=== PATIENT | female | born 1955 | race Caucasian/White ===

== ENCOUNTER → 2018-03-11 | Outpatient (CLI) | payer OTHER, MEDICAID ==
[~2018-03-11] MED LIST: ALBU18HF INH; ALBU8.5H8 INH; CHOL200024 PO; COLE625T12 PO; DIPH1TAB PO; INSU100C SQ-INSULIN; INSU100V8 SQ; LISI2.5T PO; LOPE2CAP PO; OXYB5TAB33 PO; ROPI0.254 PO; TAMS-11 PO; THC PO; [UNRECOGNIZED DRUG - OTHER] SL
[2018-03-11 10:42] LABS: ALANINE AMINOTRANSFERASE 23 U/L (12-78); ALBUMIN 3.5 g/dL (3.4-5.0); ANION GAP 8 mmol/L (5-15); CALCIUM 9.3 mg/dL (8.5-10.1); CHLORIDE 110 mmol/L (98-107); CREATININE 1.42 mg/dL (0.55-1.02)
[2018-03-11 10:44] LABS: ALKALINE PHOSPHATASE 95 U/L (45-117); BILIRUBIN,TOTAL 0.5 mg/dL (0.2-1.0); TOTAL PROTEIN 7.6 g/dL (6.4-8.2)
== END | disposition home or self-care (01) ==
LOC: STAR 09:13
PROVIDERS: ATTEND Urology
DX: Z01.818 Encounter for other preprocedural examination (principal); N20.1 Calculus of ureter; R82.992 Hyperoxaluria
CPT/HCPCS: 36415; 80053

== ENCOUNTER 2018-05-06 11:30 | Day surgery (SDC) | payer OTHER, MEDICAID ==
[~2018-05-06] VITALS: Ht 167.6 cm; Wt 108.2 kg
[2018-05-06 12:15] VITALS: BP 159/86
[2018-05-06] MEDS ORDERED: LACTATED RINGERS 1,000 ML IV SCH (12:20)
[2018-05-06] MEDS ORDERED: SULF-169 PO (12:24)
[2018-05-06 13:27] LABS: CULTURE INDICATED? YES; MICROSCOPIC INDICATED
[2018-05-06] MEDS ORDERED: FENTANYL PF 100 MCG/2ML ONE (14:37)
[2018-05-06] MEDS ORDERED: ONDANSETRON 2MG/ML, 2ML ONE (15:54)
[2018-05-06] MEDS ORDERED: CEFAZOLIN 1,000 MG ONE (15:54)
[2018-05-06] MEDS ORDERED: DEXAMETHASONE 4 MG/ML, 1ML ONE (15:54)
[2018-05-06] MEDS ORDERED: PROPOFOL 10 MG/ML, 50ML ONE (15:54)
[2018-05-06] MEDS ORDERED: PROPOFOL 10 MG/ML, 20ML ONE (15:54)
[2018-05-06] MEDS ORDERED: CIPROFLOXACIN/PMX 400MG/200ML 200 ML IVPB ONE (15:54)
[2018-05-06] MEDS ORDERED: OMNIPAQUE 350 MG/ML, 50 ML BOTTLE IV ONE (16:05)
[2018-05-06] MEDS ORDERED: PROMETHAZINE 25 MG/ML, 1ML IV PRN (17:30)
[2018-05-06] MEDS ORDERED: ACETAMINOPHEN 325 MG TABLET PO PRN (17:30)
[2018-05-06] MEDS ORDERED: DIAZEPAM 5 MG/ML, 2ML IVPush PRN (17:30)
[2018-05-06] MEDS ORDERED: MEPERIDINE/PF 25MG/0.5ML IVPush PRN (17:30)
[2018-05-06] MEDS ORDERED: OXYcodone 5 MG/5 ML ORAL.SOL UDC PO PRN (17:30)
[2018-05-06] MEDS ORDERED: HYDROmorphone 2 MG/ML, 1ML IVPush PRN (17:30)
[2018-05-06] MEDS ORDERED: ALBUTEROL SULFATE 2.5 MG/3 ML NPPB PRN (17:30)
[2018-05-06] MEDS ORDERED: LABETALOL 5MG/ML, 20ML IV PRN (17:30)
[2018-05-06] MEDS ORDERED: KETOROLAC 30 MG/1 ML IV PRN (17:30)
[2018-05-06] MEDS ORDERED: hydrALAzine 20 MG/ML, 1ML IV PRN (17:30)
[2018-05-06] MEDS ORDERED: FENTANYL PF 100 MCG/2ML IV PRN (17:30)
[2018-05-06] MEDS ORDERED: hydrALAzine 20 MG/ML, 1ML ONE (18:05)
[2018-05-06] MEDS ORDERED: LOPERAMIDE 2 MG CAPSULE PO PRN (19:20)
[2018-05-06] MEDS ORDERED: LOPERAMIDE 1 MG/5 ML, 10ML UDC PO PRN (19:30)
[2018-05-06] MEDS ORDERED: LOPERAMIDE 2 MG CAPSULE ONE (19:33)
[2018-05-06] MEDS ORDERED: TAMSULOSIN 0.4 MG CAP.ER.24H PO SCH (21:00)
== END 2018-05-06 22:48 | disposition home or self-care (01) ==
LOC: OUT 11:30 → 4NOR 18:29 → OUT 22:48
PROVIDERS: ATTEND Urology
DX: N20.0 Calculus of kidney (principal); J45.909 Unspecified asthma, uncomplicated; E11.9 Type 2 diabetes mellitus without complications; K21.9 Gastro-esophageal reflux disease without esophagitis; Z79.4 Long term (current) use of insulin; Z88.6 Allergy status to analgesic agent; Z88.5 Allergy status to narcotic agent
CPT/HCPCS: 52356; 74420; 81001; 82962; 87086; C1758; C1769; C2617; G0378; J0360; J0690; J0744; J1100; J2405; J2704; J3010; J7120; Q9967

== ENCOUNTER 2018-07-06 18:42 | Inpatient (IN) | payer MEDICAID, OTHER ==
[~2018-07-06] VITALS: Ht 167.6 cm; Wt 108.2 kg
[~2018-07-06 18:42] MED LIST changes: +SULF-169 PO
--- NOTE | 2018-07-06 18:42 | NUR ---
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
[2018-07-06] MEDS ORDERED: ONDANSETRON 2MG/ML, 2ML IVPush ONE (19:00)
[2018-07-06] MEDS ORDERED: MORPHINE SULFATE 4 MG/ML, 1ML IVPush PRN ×2 (19:00→21:30)
--- NOTE | 2018-07-06 19:04 | NUR ---
report given to Tor YUNG.
[2018-07-06] MEDS ORDERED: ONDANSETRON 2MG/ML, 2ML ONE ×2 (19:18→23:26)
[2018-07-06] MEDS ORDERED: MORPHINE SULFATE 4 MG/ML, 1ML ONE (19:18)
[2018-07-06 19:20] LABS: BASOPHILS % (AUTO) 0 % (0-1); EOSINOPHILS % (AUTO) 0 % (1-7); LYMPHOCYTES # (AUTO) 0.56 x10^3/uL (1-3.4); LYMPHOCYTES % (AUTO) 4 % (22-44); MD NO; MEAN CORPUSCULAR HEMOGLOBIN 29.2 pg (27.0-34.8); MEAN CORPUSCULAR HGB CONC 34.2 g/dL (32.4-35.8); MEAN CORPUSCULAR VOLUME 85.4 fL (80-100); MEAN PLATELET VOLUME 9.7 fL (7.4-10.4); MONOCYTES % (AUTO) 4 % (2-9); NEUTROPHILS # (AUTO) 12.71 x10^3/uL (1.8-6.8); NEUTROPHILS % (AUTO) 92 % (42-75); PLATELET COUNT 252 x10^3/uL (130-400); RED BLOOD COUNT 4.08 x10^6/uL (3.82-5.3); RED CELL DISTRIBUTION WIDTH 14.2 % (9.6-15.2)
[2018-07-06] MEDS ORDERED: TRAM-47 PO (19:28)
--- NOTE | 2018-07-06 19:28 | NUR ---
pt was medicated vss updated home med rec done pt stated feels better after medicated
[2018-07-06 19:31] LABS: ALANINE AMINOTRANSFERASE 17 U/L (12-78); ALBUMIN 3.4 g/dL (3.4-5.0); ANION GAP 9 mmol/L (5-15); CALCIUM 9.2 mg/dL (8.5-10.1); CHLORIDE 111 mmol/L (98-107); CREATININE 9.29 mg/dL (0.55-1.02)
[2018-07-06 19:35] LABS: ALKALINE PHOSPHATASE 96 U/L (45-117); BILIRUBIN,TOTAL 0.6 mg/dL (0.2-1.0); TOTAL PROTEIN 7.8 g/dL (6.4-8.2); TROPONIN I < 0.015 ng/mL (0.000-0.045)
--- NOTE | 2018-07-06 20:07 | NUR ---
PT DENIED TO VOID " I DON'T HAVE ANY PEE " GIVEN URINE CUP CALL LIGHT WITHIN REACH PT IS AAOX4
[2018-07-06] MEDS ORDERED: OMNIPAQUE 350 MG/ML, 100ML BOTTLE ONE (20:19)
--- NOTE | 2018-07-06 21:10 | NUR ---
PT IS RESTING VSS STABLE PT WILL BE ADMITTED
--- NOTE | 2018-07-06 21:28 | NUR ---
pt stated " i am much better now the pain is gone "
[2018-07-06] MEDS ORDERED: SODIUM CHLORIDE 0.9% 1,000ML IVBOLUS ONE (21:30)
[2018-07-06] MEDS ORDERED: ONDANSETRON 2MG/ML, 2ML IVPush PRN (21:30)
--- NOTE | 2018-07-06 21:48 | NUR ---
GIVEN REPORT TO RN
[2018-07-06 22:19] VITALS: BP 166/79
[2018-07-06] MEDS ORDERED: CEFTRIAXONE PMX 1GM/50ML 50 ML IV ONE (23:00)
[2018-07-06] MEDS ORDERED: FENTANYL PF 100 MCG/2ML ONE (23:20)
[2018-07-06] MEDS ORDERED: MIDAZOLAM 1 MG/ML, 2ML ONE (23:20)
[2018-07-06] MEDS ORDERED: OMNIPAQUE 350 MG/ML, 50 ML BOTTLE IV ONE (23:25)
[2018-07-06] MEDS ORDERED: PROPOFOL 10 MG/ML, 20ML ONE (23:26)
[2018-07-06] MEDS ORDERED: DEXAMETHASONE 4 MG/ML, 1ML ONE (23:26)
[2018-07-06] MEDS ORDERED: PROMETHAZINE 25 MG/ML, 1ML IM PRN (23:30)
[2018-07-06] MEDS: INSULIN LISPRO 100 UNITS/ML, PEN SQ-INSULIN SCH (23:30)
[2018-07-06] MEDS ORDERED: morphine SULFATE 10 MG/ML, 1ML IVPush PRN (23:30)
[2018-07-06] MEDS ORDERED: ACETAMINOPHEN 325 MG TABLET PO PRN (23:30)
[2018-07-06] MEDS: LACTATED RINGERS 1,000 ML IV SCH (23:30)
[2018-07-06] MEDS ORDERED: LABETALOL 5 MG/ML SYRINGE IVPush PRN (23:30)
[2018-07-06] MEDS ORDERED: OMNIPAQUE 350 MG/ML, 50 ML BOTTLE INJ ONE (23:40)
[2018-07-07 00:30] LABS: THYROID STIMULATING HORMONE 1.63 mIU/L (0.358-3.740)
[2018-07-07] MEDS ORDERED: FENTANYL PF 100 MCG/2ML IV PRN (00:30)
[2018-07-07] MEDS ORDERED: ACETAMINOPHEN 325 MG TABLET PO PRN (00:30)
[2018-07-07] MEDS ORDERED: HYDROmorphone 2 MG/ML, 1ML IVPush PRN (00:30)
[2018-07-07] MEDS ORDERED: OXYcodone 5 MG/5 ML ORAL.SOL UDC PO PRN (00:30)
[2018-07-07] MEDS ORDERED: PROMETHAZINE 25 MG/ML, 1ML IV PRN (00:30)
[2018-07-07] MEDS ORDERED: HALOPERIDOL 5 MG/ML IV PRN (00:30)
[2018-07-07] MEDS ORDERED: hydrALAzine 20 MG/ML, 1ML IV PRN (00:30)
[2018-07-07] MEDS ORDERED: ALBUTEROL/IPRATROPIUM 2.5MG/0.5MG, 3 ML NPPB PRN (00:30)
[2018-07-07] MEDS ORDERED: MEPERIDINE/PF 25MG/0.5ML IVPush PRN (00:30)
[2018-07-07 00:47] LABS: HEMOGLOBIN A1C 7.1 % (4.2-6.3)
[2018-07-07 01:00] VITALS: BP 124/70
[2018-07-07] MEDS: LACTATED RINGERS 1,000 ML IV SCH ×4 (02:21→23:03)
[2018-07-07 04:26] LABS: BASOPHILS # (AUTO) 0.01 x10^3/uL (0-0.1); BASOPHILS % (AUTO) 0 % (0-1); EOSINOPHILS % (AUTO) 0 % (1-7); LYMPHOCYTES # (AUTO) 0.37 x10^3/uL (1-3.4); LYMPHOCYTES % (AUTO) 5 % (22-44); MD NO; MEAN CORPUSCULAR HEMOGLOBIN 29.7 pg (27.0-34.8); MEAN CORPUSCULAR HGB CONC 34.3 g/dL (32.4-35.8); MEAN CORPUSCULAR VOLUME 86.7 fL (80-100); MEAN PLATELET VOLUME 9.6 fL (7.4-10.4); MONOCYTES # (AUTO) 0.14 x10^3/uL (0.2-0.8); MONOCYTES % (AUTO) 2 % (2-9); NEUTROPHILS # (AUTO) 6.92 x10^3/uL (1.8-6.8); NEUTROPHILS % (AUTO) 93 % (42-75); PLATELET COUNT 197 x10^3/uL (130-400); RED CELL DISTRIBUTION WIDTH 14.4 % (9.6-15.2)
[2018-07-07 04:35] LABS: ALANINE AMINOTRANSFERASE 12 U/L (12-78); ALBUMIN 2.8 g/dL (3.4-5.0); ANION GAP 8 mmol/L (5-15); CHLORIDE 112 mmol/L (98-107)
[2018-07-07 04:39] LABS: ALKALINE PHOSPHATASE 79 U/L (45-117); BILIRUBIN,TOTAL 0.4 mg/dL (0.2-1.0); CHOL/HDL RATIO 1.8; CHOLESTEROL, TOTAL 88 mg/dL (140-239); CREATININE 8.55 mg/dL (0.55-1.02); HDL CHOL % 55 % (28-40); HDL CHOLESTEROL (DIRECT) 48 mg/dL (40-60); LDL CHOLESTEROL,CALCULATED 27 mg/dL (54-169); LDL/HDL RATIO 0.6 (0.5-3.0); TOTAL PROTEIN 6.2 g/dL (6.4-8.2); TRIGLYCERIDES 64 mg/dL (50-200); VLDL CHOLESTEROL 13 mg/dL (0-25)
[2018-07-07 06:26] LABS: CULTURE INDICATED? YES; MICROSCOPIC INDICATED
[2018-07-07] MEDS: INSULIN LISPRO 100 UNITS/ML, PEN SQ-INSULIN SCH ×4 (07:00→20:54)
[2018-07-07] MEDS: PANTOPROZOLE 40MG TABLET PO SCH (07:30)
[2018-07-07 07:45] VITALS: BP 122/70
[2018-07-07] MEDS ORDERED: LIDOCAINE-MPF 1%, 5ML ONE (10:46)
[2018-07-07] MEDS ORDERED: MIDAZOLAM 1 MG/ML, 5ML ONE ×2 (11:20→11:21)
[2018-07-07] MEDS ORDERED: FENTANYL PF 100 MCG/2ML ONE (11:20)
[2018-07-07] MEDS ORDERED: NALOXONE 1 MG/ML, 2ML ONE (11:21)
[2018-07-07] MEDS ORDERED: FLUMAZENIL 0.1 MG/1 ML, 5ML ONE (11:21)
[2018-07-07 14:00] VITALS: BP 138/77
[2018-07-07 19:15] LABS: CULTURE INDICATED? YES; MICROSCOPIC INDICATED
[2018-07-07 20:30] VITALS: BP 99/62
[2018-07-07] MEDS: CEFTRIAXONE PMX 1GM/50ML 50 ML IV SCH (23:01)
[2018-07-08 01:18] VITALS: BP 134/72
[2018-07-08 04:44] LABS: BASOPHILS # (AUTO) 0.04 x10^3/uL (0-0.1); BASOPHILS % (AUTO) 1 % (0-1); EOSINOPHILS # (AUTO) 0.11 x10^3/uL (0-0.4); EOSINOPHILS % (AUTO) 2 % (1-7); LYMPHOCYTES # (AUTO) 0.97 x10^3/uL (1-3.4); LYMPHOCYTES % (AUTO) 18 % (22-44); MD NO; MEAN CORPUSCULAR HEMOGLOBIN 29.6 pg (27.0-34.8); MEAN CORPUSCULAR HGB CONC 34.3 g/dL (32.4-35.8); MEAN CORPUSCULAR VOLUME 86.4 fL (80-100); MEAN PLATELET VOLUME 9.7 fL (7.4-10.4); MONOCYTES # (AUTO) 0.58 x10^3/uL (0.2-0.8); MONOCYTES % (AUTO) 11 % (2-9); NEUTROPHILS # (AUTO) 3.79 x10^3/uL (1.8-6.8); NEUTROPHILS % (AUTO) 69 % (42-75); PLATELET COUNT 179 x10^3/uL (130-400); RED BLOOD COUNT 3.17 x10^6/uL (3.82-5.3); RED CELL DISTRIBUTION WIDTH 14.9 % (9.6-15.2)
[2018-07-08 04:46] LABS: ALBUMIN 2.6 g/dL (3.4-5.0); ANION GAP 8 mmol/L (5-15); CALCIUM 8.2 mg/dL (8.5-10.1); CHLORIDE 111 mmol/L (98-107)
[2018-07-08 04:50] LABS: ALANINE AMINOTRANSFERASE 13 U/L (12-78); ALKALINE PHOSPHATASE 71 U/L (45-117); BILIRUBIN,TOTAL 0.2 mg/dL (0.2-1.0); CREATININE 8.31 mg/dL (0.55-1.02)
[2018-07-08] MEDS: LACTATED RINGERS 1,000 ML IV SCH ×5 (05:03→17:51)
[2018-07-08] MEDS: INSULIN LISPRO 100 UNITS/ML, PEN SQ-INSULIN SCH ×4 (07:00→19:47)
[2018-07-08] MEDS: PANTOPROZOLE 40MG TABLET PO SCH (07:29)
[2018-07-08 09:23] VITALS: BP 136/73
[2018-07-08] MEDS ORDERED: INSULIN GLARGINE 100 UNITS/ML, PEN SQ-INSULIN SCH (13:00)
[2018-07-08] MEDS ORDERED: ALBUTEROL SULFATE 2.5 MG/3 ML NPPB PRN (13:00)
[2018-07-08 14:23] VITALS: BP 137/54
[2018-07-08] MEDS: ROPINIROLE 0.25MG TABLET PO SCH (19:46)
[2018-07-08] MEDS: TAMSULOSIN 0.4 MG CAP.ER.24H PO SCH (19:46)
[2018-07-08] MEDS: INSULIN GLARGINE 100 UNITS/ML, PEN SQ-INSULIN SCH (19:47)
[2018-07-08 20:28] VITALS: BP 130/65
[2018-07-08] MEDS: ONDANSETRON 2MG/ML, 2ML IVPush PRN (22:11)
[2018-07-08] MEDS: CEFTRIAXONE PMX 1GM/50ML 50 ML IV SCH (22:48)
[2018-07-09] MEDS: LACTATED RINGERS 1,000 ML IV SCH ×2 (00:35→22:48)
[2018-07-09 01:07] VITALS: BP 106/64
[2018-07-09 05:04] LABS: BASOPHILS # (AUTO) 0.03 x10^3/uL (0-0.1); BASOPHILS % (AUTO) 1 % (0-1); EOSINOPHILS # (AUTO) 0.14 x10^3/uL (0-0.4); EOSINOPHILS % (AUTO) 3 % (1-7); LYMPHOCYTES # (AUTO) 1.09 x10^3/uL (1-3.4); LYMPHOCYTES % (AUTO) 19 % (22-44); MD NO; MEAN CORPUSCULAR HEMOGLOBIN 28.1 pg (27.0-34.8); MEAN CORPUSCULAR HGB CONC 32.6 g/dL (32.4-35.8); MEAN CORPUSCULAR VOLUME 85.9 fL (80-100); MEAN PLATELET VOLUME 9.7 fL (7.4-10.4); MONOCYTES # (AUTO) 0.65 x10^3/uL (0.2-0.8); MONOCYTES % (AUTO) 11 % (2-9); NEUTROPHILS # (AUTO) 3.86 x10^3/uL (1.8-6.8); NEUTROPHILS % (AUTO) 67 % (42-75); PLATELET COUNT 207 x10^3/uL (130-400); RED BLOOD COUNT 3.27 x10^6/uL (3.82-5.3)
[2018-07-09 05:21] LABS: ALBUMIN 2.4 g/dL (3.4-5.0); ANION GAP 10 mmol/L (5-15); CALCIUM 7.9 mg/dL (8.5-10.1); CHLORIDE 108 mmol/L (98-107); CREATININE 7.24 mg/dL (0.55-1.02)
[2018-07-09] MEDS: INSULIN LISPRO 100 UNITS/ML, PEN SQ-INSULIN SCH ×4 (07:00→20:20)
[2018-07-09 07:15] VITALS: BP 125/72
[2018-07-09] MEDS: PANTOPROZOLE 40MG TABLET PO SCH (07:33)
[2018-07-09] MEDS: TAMSULOSIN 0.4 MG CAP.ER.24H PO SCH (07:33)
[2018-07-09] MEDS: ONDANSETRON 2MG/ML, 2ML IVPush PRN (07:33)
[2018-07-09 13:25] VITALS: BP 134/70
[2018-07-09 20:00] VITALS: BP 122/91
[2018-07-09] MEDS: INSULIN GLARGINE 100 UNITS/ML, PEN SQ-INSULIN SCH (20:24)
[2018-07-09] MEDS: ROPINIROLE 0.25MG TABLET PO SCH (20:25)
[2018-07-09] MEDS: CEFTRIAXONE PMX 1GM/50ML 50 ML IV SCH (22:48)
[2018-07-10 01:40] VITALS: BP 116/78
[2018-07-10] MEDS ORDERED: DIPHENHYDRAMINE/ZINC CRM 2%, 30GM TP PRN (04:00)
[2018-07-10 04:38] LABS: BASOPHILS # (AUTO) 0.03 x10^3/uL (0-0.1); BASOPHILS % (AUTO) 1 % (0-1); EOSINOPHILS # (AUTO) 0.23 x10^3/uL (0-0.4); EOSINOPHILS % (AUTO) 5 % (1-7); LYMPHOCYTES # (AUTO) 1.01 x10^3/uL (1-3.4); LYMPHOCYTES % (AUTO) 21 % (22-44); MD NO; MEAN CORPUSCULAR HEMOGLOBIN 29.1 pg (27.0-34.8); MEAN CORPUSCULAR HGB CONC 33.9 g/dL (32.4-35.8); MEAN CORPUSCULAR VOLUME 85.8 fL (80-100); MEAN PLATELET VOLUME 9.9 fL (7.4-10.4); MONOCYTES # (AUTO) 0.59 x10^3/uL (0.2-0.8); MONOCYTES % (AUTO) 12 % (2-9); NEUTROPHILS # (AUTO) 2.94 x10^3/uL (1.8-6.8); NEUTROPHILS % (AUTO) 61 % (42-75); PLATELET COUNT 182 x10^3/uL (130-400); RED BLOOD COUNT 3.06 x10^6/uL (3.82-5.3); RED CELL DISTRIBUTION WIDTH 14.4 % (9.6-15.2)
[2018-07-10 04:47] LABS: ALBUMIN 2.5 g/dL (3.4-5.0); ANION GAP 9 mmol/L (5-15); CALCIUM 7.8 mg/dL (8.5-10.1); CHLORIDE 110 mmol/L (98-107); CREATININE 7.09 mg/dL (0.55-1.02)
[2018-07-10 07:20] VITALS: BP 115/70
[2018-07-10] MEDS: INSULIN LISPRO 100 UNITS/ML, PEN SQ-INSULIN SCH ×4 (08:00→21:00)
[2018-07-10] MEDS: PANTOPROZOLE 40MG TABLET PO SCH (08:19)
[2018-07-10] MEDS: TAMSULOSIN 0.4 MG CAP.ER.24H PO SCH (08:19)
[2018-07-10] MEDS: LACTATED RINGERS 1,000 ML IV SCH ×2 (09:00→18:44)
[2018-07-10] MEDS ORDERED: CEFDINIR 300 MG CAPSULE PO SCH (09:00)
[2018-07-10 12:25] VITALS: BP 146/80
[2018-07-10 16:33] VITALS: BP 150/74
[2018-07-10 20:00] VITALS: BP 113/72
[2018-07-10] MEDS: INSULIN GLARGINE 100 UNITS/ML, PEN SQ-INSULIN SCH (21:53)
[2018-07-10] MEDS: ROPINIROLE 0.25MG TABLET PO SCH (21:54)
[2018-07-11 00:03] VITALS: BP 148/66
[2018-07-11] MEDS: ONDANSETRON 2MG/ML, 2ML IVPush PRN (01:58)
[2018-07-11 05:03] LABS: BASOPHILS # (AUTO) 0.04 x10^3/uL (0-0.1); BASOPHILS % (AUTO) 1 % (0-1); EOSINOPHILS # (AUTO) 0.23 x10^3/uL (0-0.4); EOSINOPHILS % (AUTO) 5 % (1-7); LYMPHOCYTES # (AUTO) 0.66 x10^3/uL (1-3.4); LYMPHOCYTES % (AUTO) 13 % (22-44); MD NO; MEAN CORPUSCULAR HEMOGLOBIN 29.1 pg (27.0-34.8); MEAN CORPUSCULAR HGB CONC 33.7 g/dL (32.4-35.8); MEAN CORPUSCULAR VOLUME 86.4 fL (80-100); MEAN PLATELET VOLUME 9.3 fL (7.4-10.4); MONOCYTES # (AUTO) 0.53 x10^3/uL (0.2-0.8); MONOCYTES % (AUTO) 10 % (2-9); NEUTROPHILS # (AUTO) 3.63 x10^3/uL (1.8-6.8); NEUTROPHILS % (AUTO) 71 % (42-75); PLATELET COUNT 190 x10^3/uL (130-400); RED BLOOD COUNT 3.13 x10^6/uL (3.82-5.3); RED CELL DISTRIBUTION WIDTH 14.4 % (9.6-15.2)
[2018-07-11 05:15] LABS: ALBUMIN 2.6 g/dL (3.4-5.0); ANION GAP 9 mmol/L (5-15); CALCIUM 8.1 mg/dL (8.5-10.1); CHLORIDE 110 mmol/L (98-107)
[2018-07-11 05:19] LABS: ALANINE AMINOTRANSFERASE 12 U/L (12-78); ALKALINE PHOSPHATASE 70 U/L (45-117); BILIRUBIN,TOTAL 0.3 mg/dL (0.2-1.0); CREATININE 6.26 mg/dL (0.55-1.02); TOTAL PROTEIN 6.1 g/dL (6.4-8.2)
[2018-07-11] MEDS ORDERED: POTASSIUM CHLORIDE 20 MEQ TAB.ER.PRT PO ONE (07:30)
[2018-07-11] MEDS ORDERED: HEPARIN 5,000 UNITS/ML, 1ML SQ SCH (07:30)
[2018-07-11] MEDS: INSULIN LISPRO 100 UNITS/ML, PEN SQ-INSULIN SCH ×2 (08:06→11:48)
[2018-07-11] MEDS: LACTATED RINGERS 1,000 ML IV SCH (08:08)
[2018-07-11] MEDS: TAMSULOSIN 0.4 MG CAP.ER.24H PO SCH (08:08)
[2018-07-11] MEDS: PANTOPROZOLE 40MG TABLET PO SCH (08:08)
[2018-07-11] MEDS ORDERED: CEFDINIR 300 MG CAPSULE PO SCH (09:00)
[2018-07-11] MEDS ORDERED: TAMS-11 PO (10:52)
[2018-07-11] MEDS ORDERED: CEFD300C37 PO (10:52)
[2018-07-11] MEDS ORDERED: ACET325T14 PO (10:52)
== END 2018-07-11 12:59 | disposition home or self-care (01) | DRG 660 ==
LOC: ED 21:06 → EDIP 21:24 → 3NW 22:13 → 3NE 07-10 16:26
PROVIDERS: ADMIT Family Medicine; ATTEND Family Medicine
PROC: BT1F1ZZ Fluoroscopy of Left Kidney, Ureter and Bladder using Low Osmolar Contrast (ICD-10-PCS; 2018-07-06)
PROC: 0T778DZ Dilation of Left Ureter with Intraluminal Device, Via Natural or Artificial Opening Endoscopic (ICD-10-PCS; principal; 2018-07-06 23:00)
PROC: 0T25X0Z Change Drainage Device in Kidney, External Approach (ICD-10-PCS; 2018-07-07)
DX: N17.9 Acute kidney failure, unspecified (principal); A04.72 Enterocolitis due to Clostridium difficile, not specified as recurrent; D64.9 Anemia, unspecified; N18.9 Chronic kidney disease, unspecified; E11.22 Type 2 diabetes mellitus with diabetic chronic kidney disease; I12.9 Hypertensive chronic kidney disease with stage 1 through stage 4 chronic kidney disease, or unspecified chronic kidney disease; E86.1 Hypovolemia; E11.649 Type 2 diabetes mellitus with hypoglycemia without coma; N13.6 Pyonephrosis; Z79.4 Long term (current) use of insulin; Z82.49 Family history of ischemic heart disease and other diseases of the circulatory system; Z83.3 Family history of diabetes mellitus; Z86.73 Personal history of transient ischemic attack (TIA), and cerebral infarction without residual deficits; Z87.19 Personal history of other diseases of the digestive system; Z87.442 Personal history of urinary calculi; Z87.891 Personal history of nicotine dependence; Z98.84 Bariatric surgery status
CPT/HCPCS: 36415; 50432; 74177; 74420; 80048; 80053; 80061; 81001; 82040; 82728; 82962; 83036; 83540; 83550; 83690; 83735; 83970; 84100; 84443; 84484; 85025; 87086; 93005; 96374; 96375; 99156; 99157; C1894; G0378; J0696; J1100; J2250; J2405; J2704; J3010; Q9967; C1729; C1769; C2617; J1815; J2310; J7030; J7120

== ENCOUNTER 2018-07-17 10:39 | Emergency (ER) | payer OTHER ==
[~2018-07-17] VITALS: Ht 167.6 cm; Wt 104.5 kg
[~2018-07-17 10:39] MED LIST changes: +ACET325T14 PO; +CEFD300C37 PO; +TRAM-47 PO
--- NOTE | 2018-07-17 11:32 | NUR ---
PT C/O OF LEAKING NEPHROSTOMY TUBE THAT BEGAN YESTERDAY, STOPPED AND PT WOKE UP TODAY WITH WET SHEETS. PT C/O MINIMAL PAIN AND HAS NO OTHER COMPLAINT. PT HAD TUBE PLACED AFTER ATTEMPTS WERE MADE TO BREAK UP STONES BUT THEN PER PT THEY RECOMBINED AND BLOCKED UP HER URETER. PT HAS APPOINTMENT AT THE END OF THE MONTH WITH UROLOGIST TO COME UP WITH PLAN TO DEAL WITH HER STONES. PT GIVEN WARM BLANKET AND PILLOW.
[2018-07-17] MEDS ORDERED: FLUMAZENIL 0.1 MG/1 ML, 5ML ONE (12:21)
[2018-07-17] MEDS ORDERED: MIDAZOLAM 1 MG/ML, 5ML ONE (12:21)
[2018-07-17] MEDS ORDERED: LIDOCAINE-MPF 1%, 5ML ONE (12:22)
--- NOTE | 2018-07-17 12:30 | NUR ---
PT TO IR.
[2018-07-17] MEDS ORDERED: FENTANYL PF 100 MCG/2ML ONE (12:35)
[2018-07-17] MEDS ORDERED: CEFAZOLIN PMX 1GM/50ML 50 ML ONE (12:42)
--- NOTE | 2018-07-17 13:00 | NUR ---
PT STILL IN IR.
[2018-07-17 14:19] VITALS: BP 152/64
--- NOTE | 2018-07-17 14:32 | NUR ---
PT GIVEN TAXI VOUCHER TO GO HOME AFTER SEDATION. PT WILL RETURN TOMORROW TO GET HER CAR VIA TAXI.
== END 2018-07-17 14:22 | disposition home or self-care (01) ==
LOC: ED 11:35
DX: T83.092A Other mechanical complication of nephrostomy catheter, initial encounter (principal); E11.9 Type 2 diabetes mellitus without complications; I10 Essential (primary) hypertension; Z87.891 Personal history of nicotine dependence; Y92.9 Unspecified place or not applicable
CPT/HCPCS: 50432; 74018; 99156; 99157; 99285; C1729; J2250; J3010

== ENCOUNTER 2018-07-24 17:49 | Emergency (ER) | payer OTHER ==
[~2018-07-24] VITALS: Ht 170.2 cm; Wt 104.0 kg
[2018-07-24 17:51] VITALS: BP 171/71
== END 2018-07-24 18:45 | disposition left against medical advice (07) ==
LOC: ED 18:02
DX: Z53.21 Procedure and treatment not carried out due to patient leaving prior to being seen by health care provider (principal)

== ENCOUNTER 2018-07-27 17:52 | Emergency (ER) | payer OTHER ==
[~2018-07-27] VITALS: Ht 170.2 cm; Wt 104.7 kg
--- NOTE | 2018-07-27 18:34 | NUR ---
BS REPORT FROM AGA VASQUEZ. PT TO ED FOR RIGHT NEPHROSTOMY TUBE LEAKAGE TODAY. PT STATES SHE WOKE UP FROM [place] AND RIGHT BACK WAS WET. PT STATES CURRENT 5/10 PAIN TO RIGHT FLANK AT INSERTION SITE. CONNECTED TO MONITORS. VSS. EDMD ASSESSMENT COMPLETE. CALL LIT WITHIN REACH. ORDERS RECEIVED.
--- NOTE | 2018-07-27 18:44 | NUR ---
US TO BS.
--- NOTE | 2018-07-27 18:56 | NUR ---
US COMPLETE. UA COLLECTED FROM NEPHROSTOMY PER EDMD. VSS. PT REESTING IN ROOM WITH LIGHTS DIMMED. AWAITING LAB DRAW.
--- NOTE | 2018-07-27 19:02 | NUR ---
LAB AT FOR DRAW.
[2018-07-27 19:15] LABS: BASOPHILS # (AUTO) 0.08 x10^3/uL (0-0.1); BASOPHILS % (AUTO) 2 % (0-1); EOSINOPHILS # (AUTO) 0.22 x10^3/uL (0-0.4); EOSINOPHILS % (AUTO) 4 % (1-7); LYMPHOCYTES # (AUTO) 0.97 x10^3/uL (1-3.4); LYMPHOCYTES % (AUTO) 18 % (22-44); MD NO; MEAN CORPUSCULAR HEMOGLOBIN 29.7 pg (27.0-34.8); MEAN CORPUSCULAR HGB CONC 34.2 g/dL (32.4-35.8); MEAN PLATELET VOLUME 10.2 fL (7.4-10.4); MONOCYTES # (AUTO) 0.56 x10^3/uL (0.2-0.8); MONOCYTES % (AUTO) 10 % (2-9); NEUTROPHILS % (AUTO) 66 % (42-75); PLATELET COUNT 220 x10^3/uL (130-400); RED BLOOD COUNT 3.43 x10^6/uL (3.82-5.3); RED CELL DISTRIBUTION WIDTH 14.9 % (9.6-15.2)
[2018-07-27 19:22] LABS: ALBUMIN 3.1 g/dL (3.4-5.0); ANION GAP 7 mmol/L (5-15); CALCIUM 8.4 mg/dL (8.5-10.1); CHLORIDE 112 mmol/L (98-107)
[2018-07-27 19:25] LABS: CULTURE INDICATED? YES; MICROSCOPIC INDICATED
[2018-07-27 19:42] VITALS: BP 152/54
--- NOTE | 2018-07-27 19:42 | NUR ---
PT RESTING IN ROOM. VSS. AWAITING RESULTS.
[2018-07-27] MEDS ORDERED: ACETAMINOPHEN 500 MG TABLET ONE (19:46)
--- NOTE | 2018-07-27 19:52 | NUR ---
PT MEDICATED FOR PAIN. VSS. NO NEEDS. ALL RESULTS BACK AT THIS TIME. CHART UPF OR RECHECK.
--- NOTE | 2018-07-27 19:54 | NUR ---
EDMD TO BS TO UPDATE ON POC. AWATING FURTHER ORDERS AND/OR DISPO.
[2018-07-27] MEDS ORDERED: ACETAMINOPHEN 500 MG TABLET PO ONE (20:00)
== END 2018-07-27 20:36 | disposition home or self-care (01) ==
LOC: ED 18:44
DX: N99.522 Malfunction of incontinent external stoma of urinary tract (principal); T83.092A Other mechanical complication of nephrostomy catheter, initial encounter; I10 Essential (primary) hypertension; E11.9 Type 2 diabetes mellitus without complications; Z86.73 Personal history of transient ischemic attack (TIA), and cerebral infarction without residual deficits
CPT/HCPCS: 36415; 76775; 80048; 81001; 82040; 85025; 87077; 87086; 87186; 99284

== ENCOUNTER 2018-08-05 13:46 | Observation (INO) | payer OTHER ==
[~2018-08-05] VITALS: Ht 170.2 cm; Wt 105.1 kg
[~2018-08-05 13:46] MED LIST changes: +EPHEDRINE 50 MG/ML, 1ML ONE
[2018-08-05] MEDS ORDERED: LACTATED RINGERS 1,000 ML IV SCH (14:20)
[2018-08-05 15:05] VITALS: BP 150/79
[2018-08-05 15:29] LABS: CULTURE INDICATED? YES; MICROSCOPIC INDICATED
[2018-08-05 15:53] LABS: ALANINE AMINOTRANSFERASE 17 U/L (12-78); ALBUMIN 3.5 g/dL (3.4-5.0); ANION GAP 8 mmol/L (5-15); CALCIUM 9.5 mg/dL (8.5-10.1); CHLORIDE 108 mmol/L (98-107); CREATININE 2.42 mg/dL (0.55-1.02)
[2018-08-05 15:56] LABS: ALKALINE PHOSPHATASE 99 U/L (45-117); BILIRUBIN,TOTAL 0.2 mg/dL (0.2-1.0); TOTAL PROTEIN 7.5 g/dL (6.4-8.2)
[2018-08-05] MEDS ORDERED: FENTANYL PF 100 MCG/2ML ONE ×2 (16:33→18:02)
[2018-08-05] MEDS ORDERED: MIDAZOLAM 1 MG/ML, 2ML ONE (16:33)
[2018-08-05] MEDS ORDERED: OMNIPAQUE 350 MG/ML, 50 ML BOTTLE IV ONE (17:35)
[2018-08-05] MEDS ORDERED: CEFTRIAXONE 1,000 MG ONE (17:42)
[2018-08-05] MEDS ORDERED: PROMETHAZINE 25 MG/ML, 1ML IV PRN (18:30)
[2018-08-05] MEDS ORDERED: OXYcodone 5 MG/5 ML ORAL.SOL UDC PO PRN (18:30)
[2018-08-05] MEDS ORDERED: ONDANSETRON 2MG/ML, 2ML IV PRN ×2 (18:30→23:00)
[2018-08-05] MEDS ORDERED: LORazepam 2 MG/ML, 1ML IVPush PRN (18:30)
[2018-08-05] MEDS ORDERED: ONDANSETRON ODT 8 MG PO PRN (18:30)
[2018-08-05] MEDS ORDERED: FENTANYL PF 100 MCG/2ML IV PRN (18:30)
[2018-08-05] MEDS ORDERED: HYDROmorphone 2 MG/ML, 1ML IVPush PRN (18:30)
[2018-08-05] MEDS ORDERED: ACETAMINOPHEN 325 MG TABLET PO PRN (18:30)
[2018-08-05] MEDS ORDERED: PROMETHAZINE 25 MG SUPP PR PRN (18:30)
[2018-08-05] MEDS ORDERED: SUCCINYLCHOLINE 20 MG/ML, 10ML ONE (19:22)
[2018-08-05] MEDS ORDERED: NEOSTIGMINE 1 MG/ML, 10ML ONE (19:22)
[2018-08-05] MEDS ORDERED: SUGAMMADEX 200 MG/2 ML IVPush ONE (19:22)
[2018-08-05] MEDS ORDERED: ONDANSETRON 2MG/ML, 2ML ONE ×2 (19:22→19:43)
[2018-08-05] MEDS ORDERED: GLYCOPYRROLATE 0.2MG/1ML, 5ML ONE (19:22)
[2018-08-05] MEDS ORDERED: DEXAMETHASONE 4 MG/ML, 1ML ONE (19:22)
[2018-08-05] MEDS ORDERED: ROCURONIUM 10MG/ML,5ML ONE (19:22)
[2018-08-05] MEDS ORDERED: PROPOFOL 10 MG/ML, 20ML ONE (19:22)
[2018-08-05] MEDS ORDERED: CEFAZOLIN 1,000 MG ONE (19:22)
[2018-08-05] MEDS ORDERED: HEPARIN 5,000 UNITS/ML, 1ML SQ ONE (23:00)
[2018-08-05] MEDS: LACTATED RINGERS 1,000 ML IV SCH (23:00)
[2018-08-05] MEDS ORDERED: morphine SULFATE 10 MG/ML, 1ML IV PRN (23:00)
[2018-08-05] MEDS ORDERED: HYDROcodone/APAP 5/325 TABLET PO PRN (23:00)
[2018-08-05] MEDS ORDERED: DIPHENHYDRAMINE 50 MG/ML, 1ML IV PRN (23:00)
[2018-08-06 00:30] VITALS: BP 128/70
[2018-08-06] MEDS ORDERED: ALBUTEROL SULFATE 2.5 MG/3 ML NPPB PRN (00:30)
[2018-08-06] MEDS ORDERED: ACETAMINOPHEN 325 MG TABLET PO PRN (00:30)
[2018-08-06] MEDS ORDERED: [UNRECOGNIZED DRUG - OTHER] MC SCH (00:30)
[2018-08-06] MEDS ORDERED: TRAMADOL MC SCH (00:30)
[2018-08-06] MEDS ORDERED: TAMSULOSIN MC SCH (00:30)
[2018-08-06] MEDS ORDERED: LOPERAMIDE MC SCH (00:30)
[2018-08-06 08:00] VITALS: BP 119/60
[2018-08-06] MEDS: INSULIN LISPRO 100 UNITS/ML, PEN MEDIUM DOSE SS SQ-INSULIN SCH ×2 (09:15→11:41)
[2018-08-06] MEDS: LACTATED RINGERS 1,000 ML IV SCH (11:42)
[2018-08-06] MEDS ORDERED: TRAM50TA2 PO (12:37)
[2018-08-06] MEDS ORDERED: CEFD300C37 PO (12:38)
[2018-08-06] MEDS ORDERED: ROPINIROLE 0.25MG TABLET PO SCH (21:00)
== END 2018-08-06 12:55 | disposition home or self-care (01) ==
LOC: OR 13:46 → 4NOR 20:32 → OR 23:44 → 4NOR 23:45 → DCLOUNGE 08-06 12:30
PROVIDERS: ADMIT Urology; ATTEND Urology
DX: N20.0 Calculus of kidney (principal); F41.9 Anxiety disorder, unspecified; M19.90 Unspecified osteoarthritis, unspecified site; J45.909 Unspecified asthma, uncomplicated; F32.9 Major depressive disorder, single episode, unspecified; E11.9 Type 2 diabetes mellitus without complications; Z86.73 Personal history of transient ischemic attack (TIA), and cerebral infarction without residual deficits; Z87.891 Personal history of nicotine dependence; Z79.4 Long term (current) use of insulin; Z79.899 Other long term (current) drug therapy
CPT/HCPCS: 36415; 50080; 74420; 80053; 81001; 82360; 82962; 87086; 88300; 93005; C1758; C1769; C2617; G0378; J0330; J0690; J0696; J1100; J1815; J2250; J2405; J2704; J2710; J3010; Q9967

== ENCOUNTER 2018-09-01 15:43 | Inpatient (IN) | payer OTHER ==
[~2018-09-01] VITALS: Ht 170.2 cm; Wt 106.8 kg
[~2018-09-01 15:43] MED LIST changes: -EPHEDRINE 50 MG/ML, 1ML ONE; +TRAM50TA2 PO
[2018-09-01 16:32] LABS: BASOPHILS # (AUTO) 0.03 x10^3/uL (0-0.1); BASOPHILS % (AUTO) 1 % (0-1); EOSINOPHILS # (AUTO) 0.09 x10^3/uL (0-0.4); EOSINOPHILS % (AUTO) 2 % (1-7); LYMPHOCYTES # (AUTO) 0.81 x10^3/uL (1-3.4); LYMPHOCYTES % (AUTO) 15 % (22-44); MD NO; MEAN CORPUSCULAR HEMOGLOBIN 29.1 pg (27.0-34.8); MEAN CORPUSCULAR HGB CONC 32.1 g/dL (32.4-35.8); MEAN CORPUSCULAR VOLUME 90.7 fL (80-100); MEAN PLATELET VOLUME 8.7 fL (7.4-10.4); MONOCYTES # (AUTO) 0.52 x10^3/uL (0.2-0.8); MONOCYTES % (AUTO) 9 % (2-9); NEUTROPHILS # (AUTO) 4.16 x10^3/uL (1.8-6.8); NEUTROPHILS % (AUTO) 74 % (42-75); PLATELET COUNT 330 x10^3/uL (130-400); RED BLOOD COUNT 3.25 x10^6/uL (3.82-5.3); RED CELL DISTRIBUTION WIDTH 13.2 % (9.6-15.2)
--- NOTE | 2018-09-01 16:37 | NUR ---
PT TO ED ROOM 17 FROM LOBBY IN NAD, PT AMBULATORY TO RESTROOM TO PROVIDE UA
--- NOTE | 2018-09-01 16:40 | NUR ---
PT TO ER, STATES THAT HER DR SENT HER BECUASE HER LABS WERE OUT OF RANGE. PT REPORTS NO SYMPTOMS EXCEPT MILD RIGHT FLANK PAIN. HX OF KIDNEY/URETER STONES.
[2018-09-01 16:43] LABS: ALANINE AMINOTRANSFERASE 9 U/L (12-78); ALBUMIN 2.9 g/dL (3.4-5.0); ANION GAP 11 mmol/L (5-15); CALCIUM 8.7 mg/dL (8.5-10.1); CHLORIDE 112 mmol/L (98-107)
--- NOTE | 2018-09-01 16:44 | NUR ---
MD MCARTHUR AT BEDSIDE TO ASSESS PT
[2018-09-01 16:46] LABS: ALKALINE PHOSPHATASE 103 U/L (45-117); BILIRUBIN,TOTAL 0.5 mg/dL (0.2-1.0); TOTAL PROTEIN 7.2 g/dL (6.4-8.2)
--- NOTE | 2018-09-01 16:53 | NUR ---
PT TO CT
[2018-09-01] MEDS ORDERED: SODIUM CHLORIDE 0.9% 1,000 ML IV ONE (17:17)
--- NOTE | 2018-09-01 17:19 | NUR ---
PT RETURNED FROM CT IN NAD
[2018-09-01] MEDS ORDERED: SODIUM CHLORIDE FLUSH 10ML SYR IVF ONE (17:30)
[2018-09-01 17:43] LABS: CULTURE INDICATED? YES; MICROSCOPIC INDICATED
--- NOTE | 2018-09-01 18:39 | NUR ---
report given to AGA Diaz
[2018-09-01] MEDS ORDERED: PROPOFOL 50 ML ONE (20:44)
[2018-09-01] MEDS ORDERED: FENTANYL PF 100 MCG/2ML ONE ×3 (20:45→22:03)
[2018-09-01] MEDS ORDERED: MIDAZOLAM 1 MG/ML, 2ML ONE (20:45)
[2018-09-01] MEDS: LACTATED RINGERS 1,000 ML IV SCH (20:58)
[2018-09-01] MEDS ORDERED: ACETAMINOPHEN 325 MG TABLET PO PRN (21:00)
[2018-09-01] MEDS: HEPARIN 5,000 UNITS/ML, 1ML SQ SCH (21:00)
[2018-09-01] MEDS: INSULIN LISPRO 100 UNITS/ML, PEN SQ-INSULIN SCH (21:00)
[2018-09-01] MEDS ORDERED: LABETALOL 5MG/ML, 20ML IVPush PRN (21:00)
[2018-09-01] MEDS ORDERED: ONDANSETRON 2MG/ML, 2ML ONE (21:00)
[2018-09-01] MEDS: INSULIN GLARGINE 100 UNITS/ML, PEN SQ-INSULIN SCH (21:00)
[2018-09-01] MEDS ORDERED: POLYETHYLENE GLYCOL 17 GM PACKET PO PRN (21:00)
[2018-09-01] MEDS ORDERED: BISACODYL 10 MG SUPP PR PRN (21:00)
[2018-09-01] MEDS: ROPINIROLE 0.25MG TABLET PO SCH (21:00)
[2018-09-01] MEDS ORDERED: METOPROLOL 1 MG/ML, 5ML IV PRN (21:30)
[2018-09-01] MEDS ORDERED: DIPHENHYDRAMINE 50 MG/ML, 1ML IVPush PRN (21:30)
[2018-09-01] MEDS ORDERED: ONDANSETRON ODT 8 MG PO PRN (21:30)
[2018-09-01] MEDS ORDERED: ONDANSETRON 2MG/ML, 2ML IV PRN (21:30)
[2018-09-01] MEDS ORDERED: EPHEDRINE 50 MG/ML, 1ML IVPush PRN (21:30)
[2018-09-01] MEDS ORDERED: EPHEDRINE 50 MG/ML, 1ML IM PRN (21:30)
[2018-09-01] MEDS ORDERED: MORPHINE SULFATE 4 MG/ML, 1ML IVPush PRN (21:30)
[2018-09-01] MEDS ORDERED: MIDAZOLAM 1 MG/ML, 2ML IV PRN (21:30)
[2018-09-01] MEDS ORDERED: hydrALAzine 20 MG/ML, 1ML IV PRN (21:30)
[2018-09-01] MEDS ORDERED: FENTANYL PF 100 MCG/2ML IV PRN (21:30)
[2018-09-01 21:40] LABS: HEMOGLOBIN A1C 6.5 % (4.2-6.3)
[2018-09-01] MEDS ORDERED: CEFAZOLIN 1,000 MG ONE ×2 (22:00)
[2018-09-01] MEDS ORDERED: PROPOFOL 10 MG/ML, 20ML ONE ×2 (22:01)
[2018-09-01] MEDS ORDERED: OXYcodone 5 MG/5 ML ORAL.SOL UDC ONE (22:31)
[2018-09-01] MEDS ORDERED: OXYcodone 5 MG/5 ML ORAL.SOL UDC PO PRN (23:00)
[2018-09-02] VITALS (7 sets, daily range): BP systolic 116–187; BP diastolic 51–96
[2018-09-02] MEDS: morphine SULFATE 10 MG/ML, 1ML IVPush PRN ×4 (00:13→05:16)
[2018-09-02] MEDS ORDERED: NITROGLYCERIN 0.4 MG BOTTLE (25 TABS) SL ONE (00:38)
[2018-09-02] MEDS ORDERED: NITROGLYCERIN SINGLE TAB 0.4 MG SL ONE (01:00)
[2018-09-02 01:10] LABS: TROPONIN I < 0.015 ng/mL (0.000-0.045)
[2018-09-02] MEDS: HEPARIN 5,000 UNITS/ML, 1ML SQ SCH ×4 (05:00→21:37)
[2018-09-02] MEDS: CEFTRIAXONE PMX 2GM/50ML 50 ML IV SCH (05:29)
[2018-09-02 05:41] LABS: MEAN CORPUSCULAR HEMOGLOBIN 29.1 pg (27.0-34.8); MEAN CORPUSCULAR HGB CONC 32.3 g/dL (32.4-35.8); MEAN CORPUSCULAR VOLUME 89.9 fL (80-100); MEAN PLATELET VOLUME 8.7 fL (7.4-10.4); PLATELET COUNT 269 x10^3/uL (130-400); RED BLOOD COUNT 2.97 x10^6/uL (3.82-5.3)
[2018-09-02 05:54] LABS: ANION GAP 11 mmol/L (5-15); CALCIUM 8.1 mg/dL (8.5-10.1); CHLORIDE 114 mmol/L (98-107); CREATININE 8.19 mg/dL (0.55-1.02)
[2018-09-02 06:05] LABS: BASOPHILS % (AUTO) 0 % (0-1); EOSINOPHILS # (AUTO) 0.01 x10^3/uL (0-0.4); EOSINOPHILS % (AUTO) 0 % (1-7); LYMPHOCYTES # (AUTO) 0.22 x10^3/uL (1-3.4); LYMPHOCYTES % (AUTO) 2 % (22-44); MD SCAN; MONOCYTES # (AUTO) 0.16 x10^3/uL (0.2-0.8); MONOCYTES % (AUTO) 2 % (2-9); NEUTROPHILS # (AUTO) 10.03 x10^3/uL (1.8-6.8); NEUTROPHILS % (AUTO) 96 % (42-75)
[2018-09-02] MEDS: INSULIN LISPRO 100 UNITS/ML, PEN SQ-INSULIN SCH ×4 (07:49→21:00)
[2018-09-02] MEDS: ONDANSETRON 2MG/ML, 2ML IVPush PRN ×2 (08:36→13:40)
[2018-09-02] MEDS: SENNA/DOCUSATE TABLET PO SCH (08:38)
[2018-09-02] MEDS: TAMSULOSIN 0.4 MG CAP.ER.24H PO SCH (09:25)
[2018-09-02 13:05] LABS: HEMOGLOBIN A1C 6.6 % (4.2-6.3)
[2018-09-02] MEDS: LACTATED RINGERS 1,000 ML IV SCH (13:13)
[2018-09-02] MEDS ORDERED: CALCIUM CARBONATE 500 MG TAB.CHEW PO ONE (13:30)
[2018-09-02] MEDS ORDERED: SODIUM BICARBONATE 650 MG TABLET PO SCH (14:00)
[2018-09-02] MEDS: SODIUM BICARB 8.4%,50ML SYR. 75 MEQ in SODIUM CHLORIDE 0.45% 1,000 ML IV SCH (16:15)
[2018-09-02] MEDS: ROPINIROLE 0.25MG TABLET PO SCH (21:38)
[2018-09-02] MEDS: CALCIUM CARBONATE 500 MG TAB.CHEW PO PRN (21:38)
[2018-09-02] MEDS: INSULIN GLARGINE 100 UNITS/ML, PEN SQ-INSULIN SCH (22:41)
[2018-09-03 01:25] VITALS: BP 133/70
[2018-09-03] MEDS: SODIUM BICARB 8.4%,50ML SYR. 75 MEQ in SODIUM CHLORIDE 0.45% 1,000 ML IV SCH (03:15)
[2018-09-03 04:57] LABS: BASOPHILS # (AUTO) 0.02 x10^3/uL (0-0.1); BASOPHILS % (AUTO) 0 % (0-1); EOSINOPHILS # (AUTO) 0.32 x10^3/uL (0-0.4); EOSINOPHILS % (AUTO) 7 % (1-7); LYMPHOCYTES # (AUTO) 0.51 x10^3/uL (1-3.4); LYMPHOCYTES % (AUTO) 11 % (22-44); MD NO; MEAN CORPUSCULAR HEMOGLOBIN 29.7 pg (27.0-34.8); MEAN CORPUSCULAR HGB CONC 32.9 g/dL (32.4-35.8); MEAN CORPUSCULAR VOLUME 90.1 fL (80-100); MEAN PLATELET VOLUME 8.6 fL (7.4-10.4); MONOCYTES # (AUTO) 0.63 x10^3/uL (0.2-0.8); MONOCYTES % (AUTO) 14 % (2-9); NEUTROPHILS # (AUTO) 2.96 x10^3/uL (1.8-6.8); NEUTROPHILS % (AUTO) 67 % (42-75); PLATELET COUNT 205 x10^3/uL (130-400); RED BLOOD COUNT 2.71 x10^6/uL (3.82-5.3); RED CELL DISTRIBUTION WIDTH 12.8 % (9.6-15.2)
[2018-09-03] MEDS: HEPARIN 5,000 UNITS/ML, 1ML SQ SCH ×3 (05:00→21:00)
[2018-09-03 05:06] LABS: ALBUMIN 2.3 g/dL (3.4-5.0); ANION GAP 9 mmol/L (5-15); CHLORIDE 110 mmol/L (98-107)
[2018-09-03 05:09] LABS: ALKALINE PHOSPHATASE 91 U/L (45-117); TOTAL PROTEIN 6.2 g/dL (6.4-8.2)
[2018-09-03] MEDS: CEFTRIAXONE PMX 2GM/50ML 50 ML IV SCH (05:27)
[2018-09-03 05:28] LABS: ALANINE AMINOTRANSFERASE < 6 U/L (12-78)
[2018-09-03 05:29] LABS: BILIRUBIN,TOTAL < 0.1 mg/dL (0.2-1.0)
[2018-09-03] MEDS: INSULIN LISPRO 100 UNITS/ML, PEN SQ-INSULIN SCH ×4 (06:16→21:48)
[2018-09-03 07:56] VITALS: BP 143/56
[2018-09-03] MEDS: SENNA/DOCUSATE TABLET PO SCH (08:32)
[2018-09-03] MEDS: TAMSULOSIN 0.4 MG CAP.ER.24H PO SCH (08:41)
[2018-09-03 13:35] VITALS: BP 147/60
[2018-09-03] MEDS: SODIUM CHLORIDE 0.45% 1,000 ML IV SCH (14:50)
[2018-09-03] MEDS: CALCIUM CARBONATE 500 MG TAB.CHEW PO PRN ×2 (14:52→18:10)
[2018-09-03 19:53] VITALS: BP 147/87
[2018-09-03] MEDS: ROPINIROLE 0.25MG TABLET PO SCH (21:00)
[2018-09-03] MEDS ORDERED: ROPINIROLE 0.5MG TABLET ONE (21:31)
[2018-09-03] MEDS: INSULIN GLARGINE 100 UNITS/ML, PEN SQ-INSULIN SCH (21:49)
[2018-09-04] MEDS: SODIUM CHLORIDE 0.45% 1,000 ML IV SCH ×3 (02:15→23:17)
[2018-09-04 02:32] VITALS: BP 100/62
[2018-09-04] MEDS: HEPARIN 5,000 UNITS/ML, 1ML SQ SCH ×3 (05:00→21:00)
[2018-09-04] MEDS: CEFTRIAXONE PMX 2GM/50ML 50 ML IV SCH (05:11)
[2018-09-04] MEDS: INSULIN LISPRO 100 UNITS/ML, PEN SQ-INSULIN SCH ×4 (06:24→21:00)
[2018-09-04 07:06] VITALS: BP 118/51
[2018-09-04] MEDS: SENNA/DOCUSATE TABLET PO SCH (08:23)
[2018-09-04] MEDS: TAMSULOSIN 0.4 MG CAP.ER.24H PO SCH (08:23)
[2018-09-04] MEDS: IRON SUCROSE COMPLEX 100MG/5ML IV SCH (08:23)
[2018-09-04 09:06] LABS: ALBUMIN 2.5 g/dL (3.4-5.0); ANION GAP 7 mmol/L (5-15); CALCIUM 8.2 mg/dL (8.5-10.1); CHLORIDE 109 mmol/L (98-107); CREATININE 6.21 mg/dL (0.55-1.02)
[2018-09-04 13:53] VITALS: BP 116/70
[2018-09-04] MEDS: CALCIUM CARBONATE 500 MG TAB.CHEW PO PRN ×2 (17:43→21:22)
[2018-09-04] MEDS: ROPINIROLE 0.25MG TABLET PO SCH (21:00)
[2018-09-04] MEDS ORDERED: ROPINIROLE 0.5MG TABLET ONE (21:13)
[2018-09-04] MEDS: INSULIN GLARGINE 100 UNITS/ML, PEN SQ-INSULIN SCH (21:23)
[2018-09-04 21:27] VITALS: BP 165/69
[2018-09-05 02:52] VITALS: BP 144/53
[2018-09-05] MEDS: HEPARIN 5,000 UNITS/ML, 1ML SQ SCH ×3 (05:00→21:00)
[2018-09-05] MEDS: CEFTRIAXONE PMX 2GM/50ML 50 ML IV SCH (05:09)
[2018-09-05 05:21] LABS: BASOPHILS # (AUTO) 0.02 x10^3/uL (0-0.1); BASOPHILS % (AUTO) 1 % (0-1); EOSINOPHILS # (AUTO) 0.28 x10^3/uL (0-0.4); EOSINOPHILS % (AUTO) 7 % (1-7); LYMPHOCYTES # (AUTO) 0.73 x10^3/uL (1-3.4); LYMPHOCYTES % (AUTO) 18 % (22-44); MD NO; MEAN CORPUSCULAR HEMOGLOBIN 29.8 pg (27.0-34.8); MEAN CORPUSCULAR HGB CONC 33.4 g/dL (32.4-35.8); MEAN CORPUSCULAR VOLUME 89.2 fL (80-100); MEAN PLATELET VOLUME 8.5 fL (7.4-10.4); MONOCYTES # (AUTO) 0.76 x10^3/uL (0.2-0.8); MONOCYTES % (AUTO) 19 % (2-9); NEUTROPHILS # (AUTO) 2.18 x10^3/uL (1.8-6.8); NEUTROPHILS % (AUTO) 55 % (42-75); PLATELET COUNT 250 x10^3/uL (130-400); RED BLOOD COUNT 2.89 x10^6/uL (3.82-5.3); RED CELL DISTRIBUTION WIDTH 12.7 % (9.6-15.2)
[2018-09-05 05:42] LABS: CHLORIDE 111 mmol/L (98-107)
[2018-09-05 06:01] LABS: ALBUMIN 2.3 g/dL (3.4-5.0); ALKALINE PHOSPHATASE 94 U/L (45-117); ANION GAP 8 mmol/L (5-15); BILIRUBIN,TOTAL 0.3 mg/dL (0.2-1.0); CALCIUM 8.3 mg/dL (8.5-10.1); CREATININE 5.03 mg/dL (0.55-1.02); TOTAL PROTEIN 6.4 g/dL (6.4-8.2)
[2018-09-05 06:02] LABS: ALANINE AMINOTRANSFERASE < 6 U/L (12-78)
[2018-09-05] MEDS: INSULIN LISPRO 100 UNITS/ML, PEN SQ-INSULIN SCH ×4 (07:00→21:00)
[2018-09-05 07:25] VITALS: BP 151/60
[2018-09-05] MEDS: SENNA/DOCUSATE TABLET PO SCH (08:41)
[2018-09-05] MEDS: IRON SUCROSE COMPLEX 100MG/5ML IV SCH (08:41)
[2018-09-05] MEDS: TAMSULOSIN 0.4 MG CAP.ER.24H PO SCH (08:41)
[2018-09-05] MEDS: SODIUM CHLORIDE 0.45% 1,000 ML IV SCH ×2 (08:41→16:12)
[2018-09-05] MEDS ORDERED: hydrALAzine 20 MG/ML, 1ML IV PRN (11:00)
[2018-09-05] MEDS ORDERED: AMLODIPINE 5 MG TABLET PO SCH (11:30)
[2018-09-05] MEDS ORDERED: POTASSIUM CHLORIDE 20 MEQ TAB.ER.PRT PO ONE (11:30)
[2018-09-05 14:30] VITALS: BP 142/55
[2018-09-05 19:53] VITALS: BP 134/75
[2018-09-05] MEDS: ROPINIROLE 0.25MG TABLET PO SCH (21:00)
[2018-09-05] MEDS ORDERED: ROPINIROLE 0.5MG TABLET ONE (21:23)
[2018-09-05] MEDS: INSULIN GLARGINE 100 UNITS/ML, PEN SQ-INSULIN SCH (21:39)
[2018-09-05] MEDS: CALCIUM CARBONATE 500 MG TAB.CHEW PO PRN (23:59)
[2018-09-06] MEDS: SODIUM CHLORIDE 0.45% 1,000 ML IV SCH (01:38)
[2018-09-06] MEDS: HEPARIN 5,000 UNITS/ML, 1ML SQ SCH ×3 (01:38→21:00)
[2018-09-06 02:47] VITALS: BP 152/76
[2018-09-06 05:29] LABS: BASOPHILS # (AUTO) 0.02 x10^3/uL (0-0.1); BASOPHILS % (AUTO) 1 % (0-1); EOSINOPHILS % (AUTO) 7 % (1-7); LYMPHOCYTES # (AUTO) 1.01 x10^3/uL (1-3.4); LYMPHOCYTES % (AUTO) 25 % (22-44); MD NO; MEAN CORPUSCULAR HEMOGLOBIN 29.4 pg (27.0-34.8); MEAN CORPUSCULAR HGB CONC 33.1 g/dL (32.4-35.8); MEAN CORPUSCULAR VOLUME 88.9 fL (80-100); MEAN PLATELET VOLUME 8.4 fL (7.4-10.4); MONOCYTES # (AUTO) 0.55 x10^3/uL (0.2-0.8); MONOCYTES % (AUTO) 13 % (2-9); NEUTROPHILS # (AUTO) 2.25 x10^3/uL (1.8-6.8); NEUTROPHILS % (AUTO) 55 % (42-75); PLATELET COUNT 254 x10^3/uL (130-400); RED CELL DISTRIBUTION WIDTH 12.3 % (9.6-15.2)
[2018-09-06 05:40] LABS: CHLORIDE 109 mmol/L (98-107)
[2018-09-06 05:49] LABS: ALANINE AMINOTRANSFERASE 6 U/L (12-78); ALBUMIN 2.3 g/dL (3.4-5.0); ALKALINE PHOSPHATASE 90 U/L (45-117); ANION GAP 8 mmol/L (5-15); BILIRUBIN,TOTAL 0.7 mg/dL (0.2-1.0); CALCIUM 7.9 mg/dL (8.5-10.1); TOTAL PROTEIN 6.3 g/dL (6.4-8.2)
[2018-09-06] MEDS: CALCIUM CARBONATE 500 MG TAB.CHEW PO PRN ×3 (06:18→21:31)
[2018-09-06] MEDS: INSULIN LISPRO 100 UNITS/ML, PEN SQ-INSULIN SCH ×4 (07:00→21:00)
[2018-09-06 07:02] VITALS: BP 153/71
[2018-09-06] MEDS ORDERED: ACETAMINOPHEN 325 MG TABLET PO PRN (08:30)
[2018-09-06] MEDS: SENNA/DOCUSATE TABLET PO SCH (09:00)
[2018-09-06] MEDS: IRON SUCROSE COMPLEX 100MG/5ML IV SCH (09:11)
[2018-09-06] MEDS: TAMSULOSIN 0.4 MG CAP.ER.24H PO SCH (09:11)
[2018-09-06 12:45] VITALS: BP 157/57
[2018-09-06] MEDS ORDERED: SODIUM CHLORIDE 0.45% 1,000 ML IV SCH (15:00)
[2018-09-06] MEDS: CARVEDILOL 3.125 MG TABLET PO SCH (16:09)
[2018-09-06 21:25] VITALS: BP 144/57
[2018-09-06] MEDS: ROPINIROLE 0.25MG TABLET PO SCH (21:32)
[2018-09-06] MEDS: INSULIN GLARGINE 100 UNITS/ML, PEN SQ-INSULIN SCH (21:38)
[2018-09-07 03:55] VITALS: BP 127/68
[2018-09-07] MEDS: HEPARIN 5,000 UNITS/ML, 1ML SQ SCH ×2 (05:00→13:00)
[2018-09-07] MEDS: CARVEDILOL 3.125 MG TABLET PO SCH (05:19)
[2018-09-07 06:40] VITALS: BP 113/65
[2018-09-07] MEDS: INSULIN LISPRO 100 UNITS/ML, PEN SQ-INSULIN SCH ×2 (07:00→11:00)
[2018-09-07] MEDS: IRON SUCROSE COMPLEX 100MG/5ML IV SCH (08:40)
[2018-09-07] MEDS: TAMSULOSIN 0.4 MG CAP.ER.24H PO SCH (08:40)
[2018-09-07] MEDS: SENNA/DOCUSATE TABLET PO SCH (08:40)
[2018-09-07 12:09] LABS: ALBUMIN 2.9 g/dL (3.4-5.0); ANION GAP 10 mmol/L (5-15); CALCIUM 8.9 mg/dL (8.5-10.1); CHLORIDE 108 mmol/L (98-107); CREATININE 3.44 mg/dL (0.55-1.02)
[2018-09-07] MEDS ORDERED: FERR-51 PO (12:50)
[2018-09-07] MEDS ORDERED: CARV3.1212 PO (12:50)
[2018-09-07 13:58] VITALS: BP 125/77
== END 2018-09-07 15:58 | disposition home or self-care (01) | DRG 660 ==
LOC: ED 17:25 → EDIP 18:08 → 4NOR 19:04 → DCLOUNGE 09-07 15:46
PROVIDERS: ADMIT Internal Medicine; ATTEND Internal Medicine
PROC: 0T768DZ Dilation of Right Ureter with Intraluminal Device, Via Natural or Artificial Opening Endoscopic (ICD-10-PCS; principal; 2018-09-02)
PROC: 0TF68ZZ Fragmentation in Right Ureter, Via Natural or Artificial Opening Endoscopic (ICD-10-PCS; 2018-09-02)
DX: N13.6 Pyonephrosis (principal); E44.0 Moderate protein-calorie malnutrition; E87.2 Acidosis; N17.0 Acute kidney failure with tubular necrosis; I12.9 Hypertensive chronic kidney disease with stage 1 through stage 4 chronic kidney disease, or unspecified chronic kidney disease; E83.39 Other disorders of phosphorus metabolism; G25.81 Restless legs syndrome; D50.9 Iron deficiency anemia, unspecified; E66.01 Morbid (severe) obesity due to excess calories; G89.29 Other chronic pain; E11.22 Type 2 diabetes mellitus with diabetic chronic kidney disease; N18.3 Chronic kidney disease, stage 3 (moderate); J45.20 Mild intermittent asthma, uncomplicated; G47.00 Insomnia, unspecified; F12.90 Cannabis use, unspecified, uncomplicated; Z98.84 Bariatric surgery status; Z93.6 Other artificial openings of urinary tract status; Z87.891 Personal history of nicotine dependence; Z86.73 Personal history of transient ischemic attack (TIA), and cerebral infarction without residual deficits; Z87.442 Personal history of urinary calculi; Z79.4 Long term (current) use of insulin; Z88.5 Allergy status to narcotic agent; Z88.8 Allergy status to other drugs, medicaments and biological substances; Z91.040 Latex allergy status; Z68.36 Body mass index [BMI] 36.0-36.9, adult
CPT/HCPCS: 36415; 74018; 74176; 76000; 80048; 80053; 80069; 81001; 82040; 82274; 82728; 82962; 83036; 83540; 83550; 83735; 84100; 84466; 84484; 85025; 87086; 93005; 99285; G0378; J0690; J0696; J1644; J1756; J2250; J2405; J2704; J3010; C1758; C1769; C2617; J1815; J2270; J7120

== ENCOUNTER 2018-09-25 18:25 | Emergency (ER) | payer OTHER ==
[~2018-09-25] VITALS: Ht 170.2 cm; Wt 104.0 kg
[~2018-09-25 18:25] MED LIST changes: +CARV3.1212 PO; +FERR-51 PO
--- NOTE | 2018-09-25 18:56 | NUR ---
report received from jermain lo.
[2018-09-25] MEDS ORDERED: SODIUM CHLORIDE FLUSH 10ML SYR IVF ONE (19:00)
[2018-09-25 19:08] LABS: MICROSCOPIC INDICATED
[2018-09-25 19:09] LABS: CULTURE INDICATED? YES
[2018-09-25 19:28] LABS: BASOPHILS # (AUTO) 0.03 x10^3/uL (0-0.1); BASOPHILS % (AUTO) 1 % (0-1); EOSINOPHILS # (AUTO) 0.22 x10^3/uL (0-0.4); EOSINOPHILS % (AUTO) 5 % (1-7); LYMPHOCYTES % (AUTO) 24 % (22-44); MD NO; MEAN CORPUSCULAR HEMOGLOBIN 30.4 pg (27.0-34.8); MEAN CORPUSCULAR HGB CONC 33.1 g/dL (32.4-35.8); MEAN CORPUSCULAR VOLUME 91.9 fL (80-100); MONOCYTES # (AUTO) 0.45 x10^3/uL (0.2-0.8); MONOCYTES % (AUTO) 10 % (2-9); NEUTROPHILS % (AUTO) 60 % (42-75); PLATELET COUNT 198 x10^3/uL (130-400); RED BLOOD COUNT 3.36 x10^6/uL (3.82-5.3); RED CELL DISTRIBUTION WIDTH 14.1 % (9.6-15.2)
[2018-09-25 19:29] VITALS: BP 145/56
[2018-09-25 19:31] LABS: ALANINE AMINOTRANSFERASE 11 U/L (12-78); ALBUMIN 3.3 g/dL (3.4-5.0); ANION GAP 7 mmol/L (5-15); CALCIUM 8.6 mg/dL (8.5-10.1); CHLORIDE 109 mmol/L (98-107)
[2018-09-25 19:34] LABS: ALKALINE PHOSPHATASE 89 U/L (45-117); BILIRUBIN,TOTAL 0.3 mg/dL (0.2-1.0); TOTAL PROTEIN 7.5 g/dL (6.4-8.2)
--- NOTE | 2018-09-25 20:05 | NUR ---
PT AMB TO BR AND BACK TO ROOM WITH STEADY GAIT.
--- NOTE | 2018-09-25 21:04 | NUR ---
PT GIVEN DC INSTRUCTIONS. PT'S AOX4. RESPS EVEN AND UNLABORED. NO ACUTE DISTRESS AT DC.
== END 2018-09-25 21:05 | disposition home or self-care (01) ==
LOC: ED 19:15
DX: N23 Unspecified renal colic (principal); E11.9 Type 2 diabetes mellitus without complications; I10 Essential (primary) hypertension; Z86.73 Personal history of transient ischemic attack (TIA), and cerebral infarction without residual deficits
CPT/HCPCS: 36415; 74176; 80053; 81001; 85025; 87086; 99284

== ENCOUNTER 2018-10-12 07:42 | Outpatient (CLI) | payer MEDICARE ==
[~2018-10-12 07:42] MED LIST changes: +FUROSEMIDE 20 MG/2 ML ONE
== END 2018-10-12 23:59 | disposition home or self-care (01) ==
LOC: PETCFH 07:42
PROVIDERS: ATTEND Urology
DX: N13.5 Crossing vessel and stricture of ureter without hydronephrosis (principal)
CPT/HCPCS: 78708; A9562; J1940

== ENCOUNTER 2018-12-05 09:50 | Inpatient (IN) | payer MEDICARE ==
[~2018-12-05] VITALS: Ht 167.6 cm; Wt 109.0 kg
[~2018-12-05 09:50] MED LIST changes: -FUROSEMIDE 20 MG/2 ML ONE
--- NOTE | 2018-12-05 10:25 | NUR ---
first contact with pt. pt states "i've had kidney stents for 3 months, now n/v and rt kidney pain starting 429 this am" pt's aox4. resps even and unlabored. bp/spo2 monitors in place. call light within reach.
[2018-12-05] MEDS ORDERED: SODIUM CHLORIDE 0.9% 1,000 ML IV ONE (10:28)
[2018-12-05] MEDS ORDERED: MORPHINE SULFATE 4 MG/ML, 1ML IVPush PRN (10:30)
[2018-12-05] MEDS ORDERED: ONDANSETRON 2MG/ML, 2ML IVPush ONE (10:30)
[2018-12-05] MEDS ORDERED: SODIUM CHLORIDE FLUSH 10ML SYR IVF ONE (10:30)
[2018-12-05] MEDS ORDERED: ONDANSETRON 2MG/ML, 2ML ONE ×2 (10:46→16:22)
[2018-12-05 10:47] LABS: BASOPHILS # (AUTO) 0.03 x10^3/uL (0-0.1); BASOPHILS % (AUTO) 1 % (0-1); EOSINOPHILS # (AUTO) 0.06 x10^3/uL (0-0.4); EOSINOPHILS % (AUTO) 1 % (1-7); LYMPHOCYTES # (AUTO) 0.48 x10^3/uL (1-3.4); LYMPHOCYTES % (AUTO) 8 % (22-44); MD NO; MEAN CORPUSCULAR HEMOGLOBIN 30.5 pg (27.0-34.8); MEAN CORPUSCULAR HGB CONC 33.7 g/dL (32.4-35.8); MEAN CORPUSCULAR VOLUME 90.6 fL (80-100); MEAN PLATELET VOLUME 9.2 fL (7.4-10.4); MONOCYTES # (AUTO) 0.42 x10^3/uL (0.2-0.8); MONOCYTES % (AUTO) 7 % (2-9); NEUTROPHILS # (AUTO) 4.77 x10^3/uL (1.8-6.8); NEUTROPHILS % (AUTO) 83 % (42-75); PLATELET COUNT 185 x10^3/uL (130-400); RED CELL DISTRIBUTION WIDTH 13.3 % (9.6-15.2)
[2018-12-05] MEDS ORDERED: MORPHINE SULFATE 4 MG/ML, 1ML ONE (10:47)
[2018-12-05 10:55] LABS: ALANINE AMINOTRANSFERASE 16 U/L (12-78); ALBUMIN 3.4 g/dL (3.4-5.0); ANION GAP 6 mmol/L (5-15); CALCIUM 8.9 mg/dL (8.5-10.1); CHLORIDE 112 mmol/L (98-107); CREATININE 3.52 mg/dL (0.55-1.02)
[2018-12-05 10:57] LABS: ALKALINE PHOSPHATASE 92 U/L (45-117); BILIRUBIN,TOTAL 0.4 mg/dL (0.2-1.0); TOTAL PROTEIN 7.2 g/dL (6.4-8.2)
--- NOTE | 2018-12-05 11:07 | NUR ---
PT MEDICATED PER EMAR. PT TOLERATED WELL.
--- NOTE | 2018-12-05 11:11 | NUR ---
PT AMB TO BR AND BACK TO ROOM WITH STEADY GAIT. PT PROVIDED SMALL AMOUNT OF URINE SAMPLE. THIS RN WALKED TO LAB.
[2018-12-05 11:33] LABS: CULTURE INDICATED? YES; MICROSCOPIC INDICATED
--- NOTE | 2018-12-05 12:13 | NUR ---
PT STRAIGHT CATH'D USING STERILE TECHNIQUE. PT TOLERATED WELL. THIS RN WALKED TO LAB.
[2018-12-05] MEDS: SODIUM CHLORIDE 0.9% 1,000 ML IV SCH ×2 (12:37→20:48)
--- NOTE | 2018-12-05 12:38 | NUR ---
REPORT GIVEN TO HIGINIO YUNG. ALL QUESTIONS ANSWERED.
[2018-12-05 12:55] LABS: MICROSCOPIC INDICATED
[2018-12-05] MEDS ORDERED: ACETAMINOPHEN 325 MG TABLET PO PRN ×2 (13:00→16:00)
[2018-12-05] MEDS ORDERED: ONDANSETRON 2MG/ML, 2ML IVPush PRN (13:00)
[2018-12-05] MEDS ORDERED: CEFTRIAXONE PMX 1GM/50ML 50 ML IV SCH (13:00)
[2018-12-05] MEDS ORDERED: morphine SULFATE 10 MG/ML, 1ML IVPush PRN (13:00)
[2018-12-05] MEDS ORDERED: hydrALAzine 20 MG/ML, 1ML IVPush PRN (13:00)
[2018-12-05 13:03] LABS: CULTURE INDICATED? YES
[2018-12-05 13:39] LABS: HEMOGLOBIN A1C 5.9 % (4.2-6.3)
[2018-12-05] MEDS ORDERED: FENTANYL PF 250 MCG/5ML ONE (15:20)
[2018-12-05] MEDS ORDERED: ALBUTEROL SULFATE 2.5 MG/3 ML NPPB PRN (16:00)
[2018-12-05] MEDS: INSULIN LISPRO 100 UNITS/ML, PEN SQ-INSULIN SCH ×2 (16:00→22:09)
[2018-12-05] MEDS ORDERED: OXYcodone 5 MG/5 ML ORAL.SOL UDC PO PRN (16:00)
[2018-12-05] MEDS ORDERED: PROMETHAZINE 25 MG/ML, 1ML IV PRN (16:00)
[2018-12-05] MEDS ORDERED: FENTANYL PF 100 MCG/2ML IV PRN (16:00)
[2018-12-05] MEDS ORDERED: HYDROmorphone 2 MG/ML, 1ML IVPush PRN (16:00)
[2018-12-05] MEDS ORDERED: LABETALOL 5MG/ML, 20ML IV PRN (16:00)
[2018-12-05] MEDS ORDERED: hydrALAzine 20 MG/ML, 1ML IV PRN (16:00)
[2018-12-05] MEDS ORDERED: GLYCOPYRROLATE 0.2MG/1ML, 5ML ONE (16:22)
[2018-12-05] MEDS ORDERED: ROCURONIUM 10MG/ML,5ML ONE (16:22)
[2018-12-05] MEDS ORDERED: CEFAZOLIN 1,000 MG ONE (16:22)
[2018-12-05] MEDS ORDERED: NEOSTIGMINE 1 MG/ML, 10ML ONE (16:22)
[2018-12-05] MEDS ORDERED: SUCCINYLCHOLINE 20 MG/ML, 10ML ONE (16:22)
[2018-12-05] MEDS ORDERED: PROPOFOL 10 MG/ML, 20ML ONE (16:22)
[2018-12-05 19:26] VITALS: BP 153/65
[2018-12-05] MEDS ORDERED: INSULIN GLARGINE 100 UNITS/ML, PEN SQ-INSULIN SCH (21:00)
[2018-12-05 21:01] VITALS: BP 130/56
[2018-12-06] VITALS: BP 133/68
[2018-12-06 05:31] LABS: BASOPHILS # (AUTO) 0.02 x10^3/uL (0-0.1); BASOPHILS % (AUTO) 0 % (0-1); EOSINOPHILS # (AUTO) 0.09 x10^3/uL (0-0.4); EOSINOPHILS % (AUTO) 2 % (1-7); LYMPHOCYTES % (AUTO) 15 % (22-44); MD NO; MEAN CORPUSCULAR HEMOGLOBIN 30.6 pg (27.0-34.8); MEAN CORPUSCULAR HGB CONC 34.1 g/dL (32.4-35.8); MEAN CORPUSCULAR VOLUME 89.6 fL (80-100); MEAN PLATELET VOLUME 9.5 fL (7.4-10.4); MONOCYTES # (AUTO) 0.54 x10^3/uL (0.2-0.8); MONOCYTES % (AUTO) 12 % (2-9); NEUTROPHILS # (AUTO) 3.37 x10^3/uL (1.8-6.8); NEUTROPHILS % (AUTO) 72 % (42-75); PLATELET COUNT 167 x10^3/uL (130-400); RED CELL DISTRIBUTION WIDTH 13.6 % (9.6-15.2)
[2018-12-06 05:41] LABS: CHLORIDE 110 mmol/L (98-107)
[2018-12-06 06:24] LABS: ALANINE AMINOTRANSFERASE 9 U/L (12-78); ALBUMIN 2.6 g/dL (3.4-5.0); ALKALINE PHOSPHATASE 74 U/L (45-117); ANION GAP 8 mmol/L (5-15); BILIRUBIN,TOTAL 0.4 mg/dL (0.2-1.0); CALCIUM 8.3 mg/dL (8.5-10.1); CREATININE 3.74 mg/dL (0.55-1.02); TOTAL PROTEIN 6.2 g/dL (6.4-8.2)
[2018-12-06 06:49] VITALS: BP 123/55
[2018-12-06] MEDS: INSULIN LISPRO 100 UNITS/ML, PEN SQ-INSULIN SCH ×2 (07:28→11:40)
[2018-12-06] MEDS ORDERED: CEFD300C37 PO (11:51)
[2018-12-06 12:02] VITALS: BP 138/74
[2018-12-08] MEDS ORDERED: OMNIPAQUE 350 MG/ML, 50 ML BOTTLE ONE (20:35)
== END 2018-12-06 13:20 | disposition home or self-care (01) | DRG 660 ==
LOC: ED 11:42 → EDIP 12:01 → 3N 13:16 → 4NE 14:55 → DCLOUNGE 12-06 13:14
PROVIDERS: ADMIT Family Medicine; ATTEND Family Medicine
PROC: 0TP98DZ Removal of Intraluminal Device from Ureter, Via Natural or Artificial Opening Endoscopic (ICD-10-PCS; 2018-12-05)
PROC: 0T9B70Z Drainage of Bladder with Drainage Device, Via Natural or Artificial Opening (ICD-10-PCS; 2018-12-05)
PROC: 0T768DZ Dilation of Right Ureter with Intraluminal Device, Via Natural or Artificial Opening Endoscopic (ICD-10-PCS; principal; 2018-12-05 15:30)
DX: T83.193A Other mechanical complication of other urinary stent, initial encounter (principal); N13.6 Pyonephrosis; N18.4 Chronic kidney disease, stage 4 (severe); I12.9 Hypertensive chronic kidney disease with stage 1 through stage 4 chronic kidney disease, or unspecified chronic kidney disease; R16.1 Splenomegaly, not elsewhere classified; E11.22 Type 2 diabetes mellitus with diabetic chronic kidney disease; E66.01 Morbid (severe) obesity due to excess calories; E86.0 Dehydration; J45.909 Unspecified asthma, uncomplicated; B96.20 Unspecified Escherichia coli [E. coli] as the cause of diseases classified elsewhere; Z86.73 Personal history of transient ischemic attack (TIA), and cerebral infarction without residual deficits; Z90.49 Acquired absence of other specified parts of digestive tract; Z88.5 Allergy status to narcotic agent; Z91.040 Latex allergy status; Z68.38 Body mass index [BMI] 38.0-38.9, adult; Z88.8 Allergy status to other drugs, medicaments and biological substances; Z79.4 Long term (current) use of insulin; G25.81 Restless legs syndrome; J45.20 Mild intermittent asthma, uncomplicated; Z87.442 Personal history of urinary calculi
CPT/HCPCS: 36415; 74176; 74420; 80053; 81001; 82962; 83036; 85025; 87077; 87086; 87186; 96374; 96375; C1726; G0378; J0690; J0696; J2405; J2704; J2710; J3010; C1758; C1769; C2617; J0330; J2270; J7030

== ENCOUNTER 2019-02-22 07:39 | Outpatient (CLI) | payer MEDICARE ==
[2019-02-22] MEDS ORDERED: TRAM50TA2 PO (08:47)
[2019-02-22] MEDS ORDERED: ACET650S21 PO (08:47)
[2019-02-22 09:12] LABS: MICROSCOPIC INDICATED
== END 2019-02-22 23:59 | disposition home or self-care (01) ==
LOC: STAR 07:39
PROVIDERS: ATTEND Urology
DX: Z01.818 Encounter for other preprocedural examination (principal); N13.5 Crossing vessel and stricture of ureter without hydronephrosis; F12.20 Cannabis dependence, uncomplicated; Z87.891 Personal history of nicotine dependence
CPT/HCPCS: 81001; 87086; 93005

== ENCOUNTER 2019-03-09 10:57 | Day surgery (SDC) | payer MEDICARE ==
[~2019-03-09] VITALS: Ht 167.6 cm; Wt 102.5 kg
[~2019-03-09 10:57] MED LIST changes: +ACET650S21 PO
[2019-03-09] MEDS ORDERED: LACTATED RINGERS 1,000 ML IV SCH (11:35)
[2019-03-09 11:59] VITALS: BP 170/75
[2019-03-09] MEDS ORDERED: MIDAZOLAM 1 MG/ML, 2ML ONE (12:31)
[2019-03-09] MEDS ORDERED: FENTANYL PF 250 MCG/5ML ONE (12:31)
[2019-03-09] MEDS ORDERED: LIDOCAINE-MPF 2% ,5ML ONE (13:05)
[2019-03-09] MEDS ORDERED: CEFAZOLIN 1,000 MG ONE (13:05)
[2019-03-09] MEDS ORDERED: ROCURONIUM 10MG/ML,5ML ONE (13:05)
[2019-03-09] MEDS ORDERED: SUGAMMADEX 200 MG/2 ML IVPush ONE (13:05)
[2019-03-09] MEDS ORDERED: DEXAMETHASONE 4 MG/ML, 1ML ONE (13:05)
[2019-03-09] MEDS ORDERED: PROPOFOL 10 MG/ML, 20ML ONE (13:05)
[2019-03-09] MEDS ORDERED: ONDANSETRON 2MG/ML, 2ML ONE (13:05)
[2019-03-09] MEDS ORDERED: hydrALAzine 20 MG/ML, 1ML IV PRN (13:30)
[2019-03-09] MEDS ORDERED: OXYcodone 5 MG/5 ML ORAL.SOL UDC PO PRN (13:30)
[2019-03-09] MEDS ORDERED: ACETAMINOPHEN 325 MG TABLET PO PRN (13:30)
[2019-03-09] MEDS ORDERED: MEPERIDINE/PF 25MG/ML,1ML IVPush PRN (13:30)
[2019-03-09] MEDS ORDERED: HYDROmorphone 2 MG/ML, 1ML IVPush PRN (13:30)
[2019-03-09] MEDS ORDERED: PROMETHAZINE 25 MG/ML, 1ML IV PRN (13:30)
[2019-03-09] MEDS ORDERED: FENTANYL PF 100 MCG/2ML IV PRN (13:30)
== END 2019-03-09 16:50 | disposition home or self-care (01) ==
LOC: OUT 10:57
PROVIDERS: ATTEND Urology
DX: Z46.6 Encounter for fitting and adjustment of urinary device (principal); N13.5 Crossing vessel and stricture of ureter without hydronephrosis; E11.22 Type 2 diabetes mellitus with diabetic chronic kidney disease; N18.4 Chronic kidney disease, stage 4 (severe); N26.1 Atrophy of kidney (terminal); J45.909 Unspecified asthma, uncomplicated; F41.8 Other specified anxiety disorders; M19.90 Unspecified osteoarthritis, unspecified site; Z79.4 Long term (current) use of insulin; Z79.899 Other long term (current) drug therapy; Z86.73 Personal history of transient ischemic attack (TIA), and cerebral infarction without residual deficits; Z88.5 Allergy status to narcotic agent; Z88.8 Allergy status to other drugs, medicaments and biological substances; Z91.040 Latex allergy status; Z87.891 Personal history of nicotine dependence; Z90.49 Acquired absence of other specified parts of digestive tract
CPT/HCPCS: 52332; 74018; 82962; C2617; J0690; J1100; J2250; J2405; J2704; J3010; J7120; 76000

== ENCOUNTER 2019-06-16 12:52 | Day surgery (SDC) | payer MEDICARE ==
[~2019-06-16] VITALS: Ht 167.6 cm; Wt 96.2 kg
[~2019-06-16 12:52] MED LIST changes: +FENTANYL PF 100 MCG/2ML ONE; +LIDOCAINE-MPF 2% ,5ML ONE; +PROPOFOL 10 MG/ML, 20ML ONE
[2019-06-16 13:22] VITALS: BP 162/75
[2019-06-16] MEDS ORDERED: MIDAZOLAM 1 MG/ML, 2ML ONE (13:27)
[2019-06-16] MEDS ORDERED: LABETALOL 5MG/ML, 20ML IV PRN (13:30)
[2019-06-16] MEDS ORDERED: PROMETHAZINE 25 MG/ML, 1ML IV PRN (13:30)
[2019-06-16] MEDS ORDERED: ONDANSETRON 2MG/ML, 2ML IV PRN (13:30)
[2019-06-16] MEDS ORDERED: MEPERIDINE/PF 25MG/ML,1ML IVPush PRN (13:30)
[2019-06-16] MEDS ORDERED: HYDROmorphone 2 MG/ML, 1ML IVPush PRN (13:30)
[2019-06-16] MEDS ORDERED: hydrALAzine 20 MG/ML, 1ML IV PRN (13:30)
[2019-06-16] MEDS ORDERED: FENTANYL PF 100 MCG/2ML IV PRN (13:30)
[2019-06-16] MEDS ORDERED: ACETAMINOPHEN 325 MG TABLET PO PRN (13:30)
[2019-06-16] MEDS ORDERED: OXYcodone 5 MG/5 ML ORAL.SOL UDC PO PRN (13:30)
[2019-06-16] MEDS ORDERED: EPHEDRINE 50 MG/ML, 1ML IVPush PRN (13:30)
[2019-06-16] MEDS ORDERED: ACET-458 PO (13:37)
[2019-06-16] MEDS ORDERED: DEXAMETHASONE 4 MG/ML, 1ML ONE ×2 (13:50)
[2019-06-16] MEDS ORDERED: ONDANSETRON 2MG/ML, 2ML ONE (13:50)
[2019-06-16] MEDS ORDERED: FENTANYL PF 100 MCG/2ML ONE (13:51)
[2019-06-16] MEDS ORDERED: CEFAZOLIN 1,000 MG ONE ×2 (13:51)
[2019-08-13] MEDS ORDERED: LORA-702 PO (15:43)
[2019-08-16] MEDS ORDERED: NITR100C PO ×2 (06:53)
== END 2019-06-16 16:25 | disposition home or self-care (01) ==
LOC: OR 12:52
PROVIDERS: ATTEND Urology
DX: N13.5 Crossing vessel and stricture of ureter without hydronephrosis (principal); F32.9 Major depressive disorder, single episode, unspecified; M19.90 Unspecified osteoarthritis, unspecified site; E11.22 Type 2 diabetes mellitus with diabetic chronic kidney disease; N18.4 Chronic kidney disease, stage 4 (severe); Z88.5 Allergy status to narcotic agent; Z91.040 Latex allergy status; Z79.899 Other long term (current) drug therapy; Z79.4 Long term (current) use of insulin; Z87.891 Personal history of nicotine dependence; Z90.49 Acquired absence of other specified parts of digestive tract; Z98.890 Other specified postprocedural states; Z86.73 Personal history of transient ischemic attack (TIA), and cerebral infarction without residual deficits; J45.909 Unspecified asthma, uncomplicated
CPT/HCPCS: 52332; 52351; 74018; 82962; 93005; C1769; C2617; J0690; J1100; J2250; J2405; J2704; J3010; 76000

== ENCOUNTER 2019-09-02 08:21 | Inpatient (IN) | payer MEDICARE ==
[~2019-09-02] VITALS: Ht 167.6 cm; Wt 105.4 kg
[~2019-09-02 08:21] MED LIST changes: +ACET-458 PO; -FENTANYL PF 100 MCG/2ML ONE; -LIDOCAINE-MPF 2% ,5ML ONE; +LORA-702 PO; +NITR100C PO; -PROPOFOL 10 MG/ML, 20ML ONE
--- NOTE | 2019-09-02 08:40 | NUR ---
TASK RN: 63 YR OLD FEMALE ARRIVED VIA EMS. PER REPORT PT WAS SEEN AT EYE DR[facility], EYES DILATED, TRIGGERED A MIGRINE. "HAVENT BEEN ABLE TO KEEP ANYTHING DOWN" NAUSEA WITH DRY HEAVES. BS 170. PT DEFERRED TO HAVE ANY TREATMENT IN ROUTE. PT WITH C/O HEAD PAIN 4/10 RIGHT KIDNEY PAIN 5/10. ERIC HERNDON AT BEDSIDE TO MATTHEW PT. REPORT TO SAURABH YUNG.
[2019-09-02] MEDS ORDERED: METOCLOPRAMIDE 5 MG/ML, 2ML IVPush ONE (09:00)
[2019-09-02] MEDS ORDERED: SODIUM CHLORIDE FLUSH 10ML SYR IVF ONE (09:00)
[2019-09-02] MEDS ORDERED: DIPHENHYDRAMINE 50 MG/ML, 1ML IVPush ONE (09:00)
[2019-09-02] MEDS ORDERED: SODIUM CHLORIDE 0.9% 1,000ML IVBOLUS ONE (09:00)
[2019-09-02] MEDS ORDERED: KETOROLAC 30 MG/1 ML IVPush ONE (09:00)
[2019-09-02 09:10] LABS: ALBUMIN 3.4 g/dL (3.4-5.0); ANION GAP 7 mmol/L (5-15); CALCIUM 8.8 mg/dL (8.5-10.1); CHLORIDE 108 mmol/L (98-107)
[2019-09-02 09:11] LABS: BASOPHILS # (AUTO) 0.06 x10^3/uL (0-0.1); BASOPHILS % (AUTO) 1 % (0-1); EOSINOPHILS # (AUTO) 0.01 x10^3/uL (0-0.4); EOSINOPHILS % (AUTO) 0 % (1-7); LYMPHOCYTES # (AUTO) 0.56 x10^3/uL (1-3.4); LYMPHOCYTES % (AUTO) 6 % (22-44); MD NO; MEAN CORPUSCULAR HEMOGLOBIN 30.3 pg (27.0-34.8); MEAN CORPUSCULAR HGB CONC 33.4 g/dL (32.4-35.8); MEAN CORPUSCULAR VOLUME 90.5 fL (80-100); MEAN PLATELET VOLUME 8.6 fL (7.4-10.4); MONOCYTES # (AUTO) 0.75 x10^3/uL (0.2-0.8); MONOCYTES % (AUTO) 8 % (2-9); NEUTROPHILS % (AUTO) 85 % (42-75); PLATELET COUNT 220 x10^3/uL (130-400); RED BLOOD COUNT 3.97 x10^6/uL (3.82-5.3); RED CELL DISTRIBUTION WIDTH 13.4 % (9.6-15.2)
[2019-09-02 09:13] LABS: CREATININE 4.26 mg/dL (0.55-1.02)
[2019-09-02] MEDS ORDERED: KETOROLAC 30 MG/1 ML ONE (09:22)
[2019-09-02] MEDS ORDERED: METOCLOPRAMIDE 5 MG/ML, 2ML ONE (09:22)
[2019-09-02] MEDS ORDERED: DIPHENHYDRAMINE 50 MG/ML, 1ML ONE (09:22)
--- NOTE | 2019-09-02 09:52 | NUR ---
PT ATTEMPTED TO PROVIDE URINE SAMPLE, UNABLE TO AT THIS TIME, STATES SHE ONLY URINATES APPROX EVERY 12H RIGHT NOW AND SHE WENT BEFORE SHE CAME TO HOSPITAL.
--- NOTE | 2019-09-02 10:26 | NUR ---
STRAIGHT CATH DONE AND URINE SAMPLE WALKED TO LAB
[2019-09-02 10:40] LABS: MICROSCOPIC AUTO
[2019-09-02] MEDS ORDERED: CEFTRIAXONE PMX 1GM/50ML 50 ML IV ONE (12:00)
[2019-09-02] MEDS ORDERED: CEFTRIAXONE PMX 1GM/50ML 50 ML ONE (12:04)
--- NOTE | 2019-09-02 12:10 | NUR ---
IV ABX STARTED, PT DOES NOT MEET SEPSIS PROTOCOL FOR BLOOD CULTURES.
--- NOTE | 2019-09-02 12:36 | NUR ---
PT TO CT
[2019-09-02] MEDS ORDERED: ONDANSETRON 2MG/ML, 2ML IVPush PRN (13:30)
[2019-09-02] MEDS ORDERED: METOCLOPRAMIDE 5 MG/ML, 2ML IVPush PRN ×2 (13:30→16:46)
[2019-09-02] MEDS ORDERED: ACETAMINOPHEN 325 MG TABLET PO PRN (13:30)
[2019-09-02] MEDS ORDERED: morphine SULFATE 10 MG/ML, 1ML IVPush PRN (13:30)
--- NOTE | 2019-09-02 14:10 | NUR ---
DENISE RN: ASSUMED CARE OF PT FOR LUNCH BREAK. REPORT GIVEN TO ZACH YUNG ON THE FLOOR.
[2019-09-02] MEDS: POTASSIUM CHLORIDE 20 MEQ in SODIUM CHLORIDE 0.45% 1,000 ML IV SCH (16:11)
[2019-09-02] MEDS: INSULIN LISPRO 100 UNITS/ML, PEN SQ-INSULIN SCH ×2 (16:17→20:19)
[2019-09-02] MEDS: LOPERAMIDE MC SCH (19:30)
[2019-09-02] MEDS: HEPARIN 5,000 UNITS/ML, 1ML SQ SCH (20:40)
[2019-09-02 20:42] VITALS: BP 170/79
[2019-09-02] MEDS ORDERED: ROPINIROLE 0.25MG TABLET PO PRN (21:00)
[2019-09-03] MEDS: POTASSIUM CHLORIDE 20 MEQ in SODIUM CHLORIDE 0.45% 1,000 ML IV SCH ×3 (02:09→20:58)
[2019-09-03 02:15] VITALS: BP 164/75
[2019-09-03] MEDS: ACETAMINOPHEN 500 MG TABLET PO PRN ×3 (03:14→18:19)
[2019-09-03] MEDS: ONDANSETRON ODT 4 MG PO PRN ×3 (03:17→18:19)
[2019-09-03] MEDS: LOPERAMIDE MC SCH (03:30)
[2019-09-03] MEDS: HEPARIN 5,000 UNITS/ML, 1ML SQ SCH ×3 (04:15→20:25)
[2019-09-03 04:35] LABS: BASOPHILS # (AUTO) 0.05 x10^3/uL (0-0.1); BASOPHILS % (AUTO) 1 % (0-1); EOSINOPHILS # (AUTO) 0.05 x10^3/uL (0-0.4); EOSINOPHILS % (AUTO) 1 % (1-7); LYMPHOCYTES # (AUTO) 0.52 x10^3/uL (1-3.4); LYMPHOCYTES % (AUTO) 8 % (22-44); MD NO; MEAN CORPUSCULAR HEMOGLOBIN 30.4 pg (27.0-34.8); MEAN CORPUSCULAR HGB CONC 33.8 g/dL (32.4-35.8); MEAN CORPUSCULAR VOLUME 89.9 fL (80-100); MEAN PLATELET VOLUME 8.9 fL (7.4-10.4); MONOCYTES # (AUTO) 0.77 x10^3/uL (0.2-0.8); MONOCYTES % (AUTO) 12 % (2-9); NEUTROPHILS # (AUTO) 5.33 x10^3/uL (1.8-6.8); NEUTROPHILS % (AUTO) 79 % (42-75); PLATELET COUNT 160 x10^3/uL (130-400); RED BLOOD COUNT 3.24 x10^6/uL (3.82-5.3); RED CELL DISTRIBUTION WIDTH 13.4 % (9.6-15.2)
[2019-09-03 04:45] LABS: ALBUMIN 2.7 g/dL (3.4-5.0); ANION GAP 6 mmol/L (5-15); CHLORIDE 108 mmol/L (98-107)
[2019-09-03 04:51] LABS: ALANINE AMINOTRANSFERASE 11 U/L (12-78); ALKALINE PHOSPHATASE 72 U/L (45-117); BILIRUBIN,TOTAL 0.8 mg/dL (0.2-1.0); CREATININE 4.69 mg/dL (0.55-1.02); TOTAL PROTEIN 6.4 g/dL (6.4-8.2)
[2019-09-03] MEDS: INSULIN LISPRO 100 UNITS/ML, PEN SQ-INSULIN SCH ×4 (07:00→20:58)
[2019-09-03 07:44] VITALS: BP 136/75
[2019-09-03] MEDS: CEFTRIAXONE PMX 1GM/50ML 50 ML IV SCH (11:41)
[2019-09-03 13:41] VITALS: BP 123/54
[2019-09-03] MEDS: ALUMINUM/MAG/SIMETHICONE 30 ML UDC PO PRN (13:46)
[2019-09-03 20:10] VITALS: BP 139/69
[2019-09-04 01:10] VITALS: BP 175/80
[2019-09-04] MEDS: ALUMINUM/MAG/SIMETHICONE 30 ML UDC PO PRN ×2 (01:15→21:46)
[2019-09-04] MEDS: ACETAMINOPHEN 500 MG TABLET PO PRN ×2 (01:17→21:46)
[2019-09-04 01:48] VITALS: BP 134/74
[2019-09-04] MEDS: HEPARIN 5,000 UNITS/ML, 1ML SQ SCH ×3 (04:47→19:52)
[2019-09-04 05:02] LABS: BASOPHILS # (AUTO) 0.04 x10^3/uL (0-0.1); BASOPHILS % (AUTO) 1 % (0-1); EOSINOPHILS # (AUTO) 0.18 x10^3/uL (0-0.4); EOSINOPHILS % (AUTO) 3 % (1-7); LYMPHOCYTES # (AUTO) 0.58 x10^3/uL (1-3.4); LYMPHOCYTES % (AUTO) 10 % (22-44); MD NO; MEAN CORPUSCULAR HEMOGLOBIN 30.2 pg (27.0-34.8); MEAN CORPUSCULAR HGB CONC 33.4 g/dL (32.4-35.8); MEAN CORPUSCULAR VOLUME 90.3 fL (80-100); MEAN PLATELET VOLUME 9.2 fL (7.4-10.4); MONOCYTES # (AUTO) 0.54 x10^3/uL (0.2-0.8); MONOCYTES % (AUTO) 10 % (2-9); NEUTROPHILS # (AUTO) 4.37 x10^3/uL (1.8-6.8); NEUTROPHILS % (AUTO) 77 % (42-75); PLATELET COUNT 164 x10^3/uL (130-400); RED BLOOD COUNT 3.26 x10^6/uL (3.82-5.3); RED CELL DISTRIBUTION WIDTH 13.1 % (9.6-15.2)
[2019-09-04 05:05] LABS: ANION GAP 9 mmol/L (5-15); CHLORIDE 108 mmol/L (98-107); CREATININE 4.61 mg/dL (0.55-1.02)
[2019-09-04] MEDS: INSULIN LISPRO 100 UNITS/ML, PEN SQ-INSULIN SCH ×4 (07:00→19:52)
[2019-09-04 07:05] VITALS: BP 132/70
[2019-09-04] MEDS: POTASSIUM CHLORIDE 20 MEQ in SODIUM CHLORIDE 0.45% 1,000 ML IV SCH ×2 (08:06→18:16)
[2019-09-04] MEDS: CEFTRIAXONE PMX 1GM/50ML 50 ML IV SCH (12:00)
[2019-09-04] MEDS ORDERED: PHARMACY MAY ADJ FOR RENAL FX MC PRN (12:30)
[2019-09-04] MEDS ORDERED: METOCLOPRAMIDE 5 MG/ML, 2ML IVPush PRN ×2 (12:30→16:46)
[2019-09-04] MEDS ORDERED: DIPHENHYDRAMINE 50 MG/ML, 1ML IVPush PRN (12:30)
[2019-09-04] MEDS: LORATADINE 10 MG TABLET PO SCH (13:28)
[2019-09-04 13:45] VITALS: BP 144/81
[2019-09-04 20:20] VITALS: BP 158/82
[2019-09-05 00:32] VITALS: BP 125/72
[2019-09-05] MEDS: ACETAMINOPHEN 500 MG TABLET PO PRN ×2 (02:55→15:21)
[2019-09-05] MEDS: POTASSIUM CHLORIDE 20 MEQ in SODIUM CHLORIDE 0.45% 1,000 ML IV SCH ×2 (03:40→14:14)
[2019-09-05] MEDS: HEPARIN 5,000 UNITS/ML, 1ML SQ SCH ×3 (04:54→20:52)
[2019-09-05 05:08] LABS: ALBUMIN 2.7 g/dL (3.4-5.0); ANION GAP 5 mmol/L (5-15); CALCIUM 8.1 mg/dL (8.5-10.1); CHLORIDE 109 mmol/L (98-107); CREATININE 4.25 mg/dL (0.55-1.02)
[2019-09-05 05:11] LABS: BASOPHILS # (AUTO) 0.02 x10^3/uL (0-0.1); BASOPHILS % (AUTO) 0 % (0-1); EOSINOPHILS # (AUTO) 0.23 x10^3/uL (0-0.4); EOSINOPHILS % (AUTO) 5 % (1-7); LYMPHOCYTES # (AUTO) 0.75 x10^3/uL (1-3.4); LYMPHOCYTES % (AUTO) 17 % (22-44); MD NO; MEAN CORPUSCULAR HEMOGLOBIN 30.1 pg (27.0-34.8); MEAN CORPUSCULAR HGB CONC 33.1 g/dL (32.4-35.8); MEAN PLATELET VOLUME 9.1 fL (7.4-10.4); MONOCYTES # (AUTO) 0.65 x10^3/uL (0.2-0.8); MONOCYTES % (AUTO) 15 % (2-9); NEUTROPHILS # (AUTO) 2.77 x10^3/uL (1.8-6.8); NEUTROPHILS % (AUTO) 63 % (42-75); PLATELET COUNT 186 x10^3/uL (130-400); RED BLOOD COUNT 3.32 x10^6/uL (3.82-5.3); RED CELL DISTRIBUTION WIDTH 13.5 % (9.6-15.2)
[2019-09-05] MEDS: INSULIN LISPRO 100 UNITS/ML, PEN SQ-INSULIN SCH ×4 (07:00→20:53)
[2019-09-05 07:15] VITALS: BP 150/78
[2019-09-05] MEDS: LORATADINE 10 MG TABLET PO SCH (07:18)
[2019-09-05] MEDS: LOPERAMIDE 2 MG CAPSULE PO PRN ×2 (08:26→18:03)
[2019-09-05] MEDS ORDERED: METHOCARBAMOL 750 MG TABLET PO PRN (09:00)
[2019-09-05] MEDS ORDERED: SUMATRIPTAN 6MG/0.5ML SQ ONE (09:30)
[2019-09-05 10:15] VITALS: BP 178/86
[2019-09-05 11:10] LABS: TROPONIN I < 0.015 ng/mL (0.000-0.045)
[2019-09-05] MEDS: CEFTRIAXONE PMX 1GM/50ML 50 ML IV SCH (11:40)
[2019-09-05 13:47] VITALS: BP 145/77
[2019-09-05] MEDS: ALUMINUM/MAG/SIMETHICONE 30 ML UDC PO PRN ×2 (15:21→20:51)
[2019-09-05 16:46] LABS: TROPONIN I < 0.015 ng/mL (0.000-0.045)
[2019-09-05 19:53] VITALS: BP 134/74
[2019-09-06] MEDS: POTASSIUM CHLORIDE 20 MEQ in SODIUM CHLORIDE 0.45% 1,000 ML IV SCH ×2 (00:37→10:39)
[2019-09-06 01:25] VITALS: BP 133/77
[2019-09-06] MEDS: HEPARIN 5,000 UNITS/ML, 1ML SQ SCH ×2 (05:00→12:58)
[2019-09-06] MEDS: ACETAMINOPHEN 500 MG TABLET PO PRN (05:13)
[2019-09-06 05:43] LABS: BASOPHILS # (AUTO) 0.04 x10^3/uL (0-0.1); BASOPHILS % (AUTO) 1 % (0-1); EOSINOPHILS # (AUTO) 0.25 x10^3/uL (0-0.4); EOSINOPHILS % (AUTO) 5 % (1-7); LYMPHOCYTES # (AUTO) 1.15 x10^3/uL (1-3.4); LYMPHOCYTES % (AUTO) 23 % (22-44); MD NO; MEAN CORPUSCULAR HEMOGLOBIN 29.6 pg (27.0-34.8); MEAN CORPUSCULAR HGB CONC 32.5 g/dL (32.4-35.8); MEAN PLATELET VOLUME 9.1 fL (7.4-10.4); MONOCYTES # (AUTO) 0.69 x10^3/uL (0.2-0.8); MONOCYTES % (AUTO) 14 % (2-9); NEUTROPHILS # (AUTO) 2.88 x10^3/uL (1.8-6.8); NEUTROPHILS % (AUTO) 57 % (42-75); PLATELET COUNT 224 x10^3/uL (130-400); RED BLOOD COUNT 3.49 x10^6/uL (3.82-5.3); RED CELL DISTRIBUTION WIDTH 13.1 % (9.6-15.2)
[2019-09-06 05:49] LABS: CALCIUM 8.3 mg/dL (8.5-10.1); CHLORIDE 109 mmol/L (98-107)
[2019-09-06 05:53] LABS: ANION GAP 6 mmol/L (5-15); CREATININE 4.06 mg/dL (0.55-1.02)
[2019-09-06] MEDS: INSULIN LISPRO 100 UNITS/ML, PEN SQ-INSULIN SCH ×2 (07:00→10:40)
[2019-09-06] MEDS: LORATADINE 10 MG TABLET PO SCH (07:05)
[2019-09-06 07:30] VITALS: BP 168/82
[2019-09-06] MEDS: LOPERAMIDE 2 MG CAPSULE PO PRN (09:02)
[2019-09-06] MEDS: CEFTRIAXONE PMX 1GM/50ML 50 ML IV SCH (11:53)
[2019-09-06] MEDS ORDERED: CEFD300C37 PO (12:18)
[2019-09-06] MEDS ORDERED: ACID1TAB3 PO (12:18)
[2019-09-06] MEDS: ALUMINUM/MAG/SIMETHICONE 30 ML UDC PO PRN (13:57)
== END 2019-09-06 14:40 | disposition home or self-care (01) | DRG 698 ==
LOC: ED 08:38 → EDIP 12:36 → 3N 15:10 → DCLOUNGE 09-06 14:33
PROVIDERS: ADMIT Family Medicine; ATTEND Family Medicine
DX: T83.89XA Other specified complication of genitourinary prosthetic devices, implants and grafts, initial encounter (principal); N17.0 Acute kidney failure with tubular necrosis; N18.6 End stage renal disease; N13.6 Pyonephrosis; I12.0 Hypertensive chronic kidney disease with stage 5 chronic kidney disease or end stage renal disease; N20.0 Calculus of kidney; K52.9 Noninfective gastroenteritis and colitis, unspecified; G43.009 Migraine without aura, not intractable, without status migrainosus; I89.0 Lymphedema, not elsewhere classified; D63.1 Anemia in chronic kidney disease; E11.22 Type 2 diabetes mellitus with diabetic chronic kidney disease; E86.9 Volume depletion, unspecified; E83.41 Hypermagnesemia; J45.909 Unspecified asthma, uncomplicated; G25.81 Restless legs syndrome; K21.9 Gastro-esophageal reflux disease without esophagitis; E11.21 Type 2 diabetes mellitus with diabetic nephropathy; E66.9 Obesity, unspecified; Z96.653 Presence of artificial knee joint, bilateral; Z90.49 Acquired absence of other specified parts of digestive tract; Y83.9 Surgical procedure, unspecified as the cause of abnormal reaction of the patient, or of later complication, without mention of misadventure at the time of the procedure; Z86.73 Personal history of transient ischemic attack (TIA), and cerebral infarction without residual deficits; Z88.5 Allergy status to narcotic agent; Z88.8 Allergy status to other drugs, medicaments and biological substances; Z91.02 Food additives allergy status; Z91.040 Latex allergy status; Z83.3 Family history of diabetes mellitus; Z82.49 Family history of ischemic heart disease and other diseases of the circulatory system; Z80.8 Family history of malignant neoplasm of other organs or systems; Z68.37 Body mass index [BMI] 37.0-37.9, adult
CPT/HCPCS: 36415; 70450; 74176; 80048; 80053; 80069; 81001; 82040; 82962; 83036; 83605; 83735; 84100; 84484; 85025; 87086; 93005; 96374; 96375; 99285; G0378; J0696; J1885; J2405; J3480; Q0162; J1200; J1815; J2270; J2765; J3030; J7030

== ENCOUNTER 2019-09-19 00:11 | Emergency (ER) | payer MEDICARE ==
[~2019-09-19] VITALS: Ht 162.6 cm; Wt 102.4 kg
[~2019-09-19 00:11] MED LIST changes: +ACID1TAB3 PO
--- NOTE | 2019-09-19 00:12 | NUR ---
FIRST CONTACT WITH PT: PT BIB [facility] REPORTING VERTIGO, HEADACHE AND VOMITTING. PT REPORTS THIS HAS TAKEN PLACE X8CVAVE, PT WAS DC'D LAST THURSDAY BUT ON HER LAST VISIT "THEY ONLY CARED ABOUT MY KIDNEYS." PT STATES THEY DID NOT RESOLVE OR LOOK AT HER VERTIGO, DUNBAR, NAUSEA. PT GROSS NEURO INTACT, WALKS WITH CANE AT BASELINE, PT TRANSFERS SMOOTHLY WITH STAND BY ASSIST. PT DENIES ANY HEAD TRAUMA, ANOx4, MAEx4, P/W/D. PT PLACED ON BP/SPO2/ECG MONITORING. WCTM.
[2019-09-19] MEDS ORDERED: ACID1CAP PO (00:27)
[2019-09-19] MEDS ORDERED: ONDA4TAB13 SL (00:27)
[2019-09-19] MEDS ORDERED: DIPHENHYDRAMINE 50 MG/ML, 1ML IVPush ONE (00:30)
[2019-09-19] MEDS ORDERED: LORazepam 2 MG/ML, 1ML IVPush ONE (00:30)
[2019-09-19] MEDS ORDERED: PROCHLORPERAZINE 5 MG/ML, 2ML IVPush ONE (00:30)
[2019-09-19] MEDS ORDERED: SODIUM CHLORIDE 0.9% 1,000ML IVBOLUS ONE (00:30)
[2019-09-19] MEDS ORDERED: DIPHENHYDRAMINE 50 MG/ML, 1ML ONE (00:33)
[2019-09-19] MEDS ORDERED: LORazepam 2 MG/ML, 1ML ONE (00:33)
[2019-09-19] MEDS ORDERED: PROCHLORPERAZINE 5 MG/ML, 2ML ONE (00:33)
[2019-09-19 01:11] LABS: BASOPHILS # (AUTO) 0.01 x10^3/uL (0-0.1); BASOPHILS % (AUTO) 0 % (0-1); EOSINOPHILS # (AUTO) 0.03 x10^3/uL (0-0.4); EOSINOPHILS % (AUTO) 1 % (1-7); LYMPHOCYTES # (AUTO) 0.67 x10^3/uL (1-3.4); LYMPHOCYTES % (AUTO) 14 % (22-44); MD NO; MEAN CORPUSCULAR HEMOGLOBIN 29.9 pg (27.0-34.8); MEAN CORPUSCULAR HGB CONC 33.3 g/dL (32.4-35.8); MEAN CORPUSCULAR VOLUME 89.8 fL (80-100); MEAN PLATELET VOLUME 8.9 fL (7.4-10.4); MONOCYTES # (AUTO) 0.38 x10^3/uL (0.2-0.8); MONOCYTES % (AUTO) 8 % (2-9); NEUTROPHILS # (AUTO) 3.67 x10^3/uL (1.8-6.8); NEUTROPHILS % (AUTO) 77 % (42-75); PLATELET COUNT 230 x10^3/uL (130-400); RED BLOOD COUNT 3.72 x10^6/uL (3.82-5.3); RED CELL DISTRIBUTION WIDTH 12.7 % (9.6-15.2)
--- NOTE | 2019-09-19 01:15 | NUR ---
PT MEDICATED PER MAR, PLACED ON NC FOR O2 SAT, PT APPEARS RELAXED NO LONGER DRY HEAVING. WCTM.
[2019-09-19 01:23] LABS: ALANINE AMINOTRANSFERASE 16 U/L (12-78); ALBUMIN 3.5 g/dL (3.4-5.0); ANION GAP 4 mmol/L (5-15); CALCIUM 8.8 mg/dL (8.5-10.1); CHLORIDE 106 mmol/L (98-107)
[2019-09-19 01:27] LABS: ALKALINE PHOSPHATASE 92 U/L (45-117); BILIRUBIN,TOTAL 0.7 mg/dL (0.2-1.0); TOTAL PROTEIN 7.7 g/dL (6.4-8.2); TROPONIN I < 0.015 ng/mL (0.000-0.045)
--- NOTE | 2019-09-19 01:53 | NUR ---
pt to and from CT without issues. pt resting in gurney, appears comfortable, eyes closed, even RESP. WCTM.
--- NOTE | 2019-09-19 02:18 | NUR ---
PT RESTING IN GURNEY, APPEARS COMFORTABLE, VSS, RESP EVEN AND UNLABORED, EYES CLOSED, WCTM. WAITING ON CT READ
[2019-09-19 03:17] VITALS: BP_DIAS 62
--- NOTE | 2019-09-19 03:30 | NUR ---
PT CONTINUES TO SLEEP, EYES CLOSED, NAD, RESP WNL, VSS, P/W/D. WCTM.
--- NOTE | 2019-09-19 04:12 | NUR ---
Patient given discharge instructions and they have confirmed that they understand the instructions. Patient ambulatory with steady gait. DENIES ADDITIONAL QUESTIONS AT THIS TIME, NAD, VSS, P/W/D.
[2019-09-19 04:24] VITALS: BP_SYST 149
== END 2019-09-19 04:26 | disposition home or self-care (01) ==
LOC: ED 01:19
DX: G43.009 Migraine without aura, not intractable, without status migrainosus (principal); R42 Dizziness and giddiness; R11.2 Nausea with vomiting, unspecified; R94.31 Abnormal electrocardiogram [ECG] [EKG]; E11.22 Type 2 diabetes mellitus with diabetic chronic kidney disease; I12.0 Hypertensive chronic kidney disease with stage 5 chronic kidney disease or end stage renal disease; N18.6 End stage renal disease; J45.909 Unspecified asthma, uncomplicated; Z86.73 Personal history of transient ischemic attack (TIA), and cerebral infarction without residual deficits
CPT/HCPCS: 36415; 70450; 80053; 84484; 85025; 93005; 96361; 96374; 96375; 99285; J0780; J1200; J2060; J7030

== ENCOUNTER 2019-10-25 08:19 | Day surgery (SDC) | payer MEDICARE ==
[~2019-10-25] VITALS: Ht 170.2 cm; Wt 102.6 kg
[~2019-10-25 08:19] MED LIST changes: +ACID1CAP PO; +ONDA4TAB13 SL
[2019-10-25 09:03] VITALS: BP 151/79
[2019-10-25] MEDS ORDERED: CHLORHEXIDINE 15 ML UDC MM STA (09:09)
[2019-10-25] MEDS ORDERED: SODIUM CHLORIDE 0.9% 1,000 ML IV SCH (09:09)
[2019-10-25] MEDS ORDERED: MECL-101 PO (09:11)
[2019-10-25] MEDS ORDERED: CHLORHEXIDINE 15 ML UDC ONE (09:18)
[2019-10-25 09:25] LABS: MICROSCOPIC AUTO
[2019-10-25] MEDS ORDERED: MIDAZOLAM 1 MG/ML, 2ML ONE (10:26)
[2019-10-25] MEDS ORDERED: FENTANYL PF 100 MCG/2ML ONE (10:27)
[2019-10-25] MEDS ORDERED: ONDANSETRON 2MG/ML, 2ML ONE (10:58)
[2019-10-25] MEDS ORDERED: PROPOFOL 10 MG/ML, 20ML ONE (10:58)
[2019-10-25] MEDS ORDERED: LIDOCAINE PF 2%, 5ML ONE (10:58)
[2019-10-25] MEDS ORDERED: DEXAMETHASONE 4 MG/ML, 1ML ONE (10:58)
[2019-10-25] MEDS ORDERED: CEFAZOLIN 1,000 MG ONE (10:58)
[2019-10-25] MEDS ORDERED: PROMETHAZINE 25 MG/ML, 1ML IVPush PRN (11:00)
[2019-10-25] MEDS ORDERED: LORazepam 2 MG/ML, 1ML IVPush PRN (11:00)
[2019-10-25] MEDS ORDERED: ALBUTEROL SULFATE 2.5 MG/3 ML NPPB PRN (11:00)
[2019-10-25] MEDS ORDERED: ACETAMINOPHEN 325 MG TABLET PO PRN (11:00)
[2019-10-25] MEDS ORDERED: hydrALAzine 20 MG/ML, 1ML IV PRN (11:00)
[2019-10-25] MEDS ORDERED: OXYcodone 5 MG/5 ML ORAL.SOL UDC PO PRN (11:00)
[2019-10-25] MEDS ORDERED: FENTANYL PF 100 MCG/2ML IV PRN (11:00)
[2019-10-25] MEDS ORDERED: MEPERIDINE/PF 25MG/0.5ML IVPush PRN (11:00)
[2019-10-25] MEDS ORDERED: LABETALOL 5MG/ML, 20ML IV PRN (11:00)
== END 2019-10-25 13:45 | disposition home or self-care (01) ==
LOC: OUT 08:19
PROVIDERS: ATTEND Urology
DX: T83.192A Other mechanical complication of indwelling ureteral stent, initial encounter (principal); Z11.59 Encounter for screening for other viral diseases; N13.5 Crossing vessel and stricture of ureter without hydronephrosis; N30.90 Cystitis, unspecified without hematuria; E11.22 Type 2 diabetes mellitus with diabetic chronic kidney disease; N18.9 Chronic kidney disease, unspecified; E66.01 Morbid (severe) obesity due to excess calories; J45.909 Unspecified asthma, uncomplicated; K21.9 Gastro-esophageal reflux disease without esophagitis; Z79.899 Other long term (current) drug therapy; Z88.5 Allergy status to narcotic agent; Z91.040 Latex allergy status; Z86.73 Personal history of transient ischemic attack (TIA), and cerebral infarction without residual deficits; Z96.653 Presence of artificial knee joint, bilateral; Z90.49 Acquired absence of other specified parts of digestive tract; Z98.890 Other specified postprocedural states; Y83.8 Other surgical procedures as the cause of abnormal reaction of the patient, or of later complication, without mention of misadventure at the time of the procedure
CPT/HCPCS: 36415; 52332; 74018; 81001; 82962; 87086; 87635; C1758; C1769; C2617; J0690; J1100; J2250; J2405; J2704; J3010; J7030; 76000

== ENCOUNTER → 2019-11-30 | Outpatient (CLI) | payer MEDICARE ==
[~2019-11-30] MED LIST changes: +MECL-101 PO
== END | disposition home or self-care (01) ==
LOC: CFH 11:34
PROVIDERS: ATTEND Nurse Practitioner
DX: N61.0 Mastitis without abscess (principal)
CPT/HCPCS: 76642; 77066; G0279

== ENCOUNTER → 2020-01-18 | Outpatient (CLI) | payer MEDICARE ==
[~2020-01-18] MED LIST changes: +GADOTERATE 10 MMOL/20 ML VIAL ONE
== END | disposition home or self-care (01) ==
LOC: CFH 09:59
PROVIDERS: ATTEND Surgery
DX: R92.8 Other abnormal and inconclusive findings on diagnostic imaging of breast (principal); N64.4 Mastodynia
CPT/HCPCS: 77049; A9575; C8937; C8908

== ENCOUNTER 2020-03-15 10:32 | Day surgery (SDC) | payer MEDICARE ==
[~2020-03-15] VITALS: Ht 170.2 cm; Wt 109.7 kg
[~2020-03-15 10:32] MED LIST changes: -GADOTERATE 10 MMOL/20 ML VIAL ONE
[2020-03-15] MEDS ORDERED: SODIUM BICARB PO (11:38)
[2020-03-15] MEDS ORDERED: ROPI0.254 PO (11:38)
[2020-03-15] MEDS ORDERED: CHLORHEXIDINE 15 ML UDC ONE (11:42)
[2020-03-15] MEDS ORDERED: LACTATED RINGERS 1,000 ML IV SCH (12:00)
[2020-03-15] MEDS ORDERED: CHLORHEXIDINE 15 ML UDC MM ONE (12:00)
[2020-03-15 12:12] VITALS: BP 134/66
[2020-03-15] MEDS ORDERED: MELATONIN PO (12:16)
[2020-03-15] MEDS ORDERED: SODIUM CHLORIDE 0.9% 1,000 ML IV SCH (12:30)
[2020-03-15] MEDS ORDERED: FENTANYL PF 250 MCG/5ML ONE (12:35)
[2020-03-15] MEDS ORDERED: MIDAZOLAM 1 MG/ML, 2ML ONE (12:35)
[2020-03-15 12:36] LABS: BASOPHILS % (AUTO) 2 % (0-1); EOSINOPHILS % (AUTO) 3 % (1-7); LYMPHOCYTES % (AUTO) 20 % (22-44); MEAN CORPUSCULAR HEMOGLOBIN 29.3 pg (27.0-34.8); MEAN PLATELET VOLUME 9.1 fL (7.4-10.4); MONOCYTES % (AUTO) 9 % (2-9); NEUTROPHILS % (AUTO) 65 % (42-75); PLATELET COUNT 184 x10^3/uL (130-400); RED BLOOD COUNT 3.53 x10^6/uL (3.82-5.3); RED CELL DISTRIBUTION WIDTH 13.3 % (9.6-15.2)
[2020-03-15 12:42] LABS: MD NO
[2020-03-15 12:45] LABS: ALANINE AMINOTRANSFERASE 15 U/L (12-78); ALBUMIN 3.2 g/dL (3.4-5.0); ANION GAP 6 mmol/L (5-15); CALCIUM 8.6 mg/dL (8.5-10.1); CHLORIDE 109 mmol/L (98-107); CREATININE 3.97 mg/dL (0.55-1.02)
[2020-03-15 12:47] LABS: ALKALINE PHOSPHATASE 82 U/L (45-117); BILIRUBIN,TOTAL 0.4 mg/dL (0.2-1.0)
[2020-03-15] MEDS ORDERED: LABETALOL 5MG/ML, 20ML IV PRN (13:00)
[2020-03-15] MEDS ORDERED: HYDROmorphone 1 MG/ML, 1ML INJ IVPush PRN (13:00)
[2020-03-15] MEDS ORDERED: ACETAMINOPHEN 325 MG TABLET PO PRN (13:00)
[2020-03-15] MEDS ORDERED: hydrALAzine 20 MG/ML, 1ML IV PRN (13:00)
[2020-03-15] MEDS ORDERED: OXYcodone 5 MG/5 ML ORAL.SOL UDC PO PRN (13:00)
[2020-03-15] MEDS ORDERED: PROMETHAZINE 25 MG/ML, 1ML IVPush PRN (13:00)
[2020-03-15] MEDS ORDERED: ONDANSETRON 2MG/ML, 2ML IVPush PRN (13:00)
[2020-03-15] MEDS ORDERED: DEXAMETHASONE 4 MG/ML, 1ML ONE (13:07)
[2020-03-15] MEDS ORDERED: PROPOFOL 10 MG/ML, 20ML ONE (13:08)
[2020-03-15] MEDS ORDERED: CEFAZOLIN 1,000 MG ONE ×2 (13:16)
[2020-03-15] MEDS ORDERED: OMNIPAQUE 350 MG/ML, 50 ML BOTTLE IV ONE (13:31)
[2020-03-15] MEDS ORDERED: ONDANSETRON 2MG/ML, 2ML ONE (13:39)
[2020-03-15] MEDS ORDERED: OMNIPAQUE 350 MG/ML, 50 ML BOTTLE ONE (14:13)
== END 2020-03-15 17:30 | disposition home or self-care (01) ==
LOC: OUT 10:32
PROVIDERS: ATTEND Urology
DX: Z46.6 Encounter for fitting and adjustment of urinary device (principal); N13.2 Hydronephrosis with renal and ureteral calculous obstruction; N18.4 Chronic kidney disease, stage 4 (severe); N26.1 Atrophy of kidney (terminal); Z20.828 Contact with and (suspected) exposure to other viral communicable diseases; Z79.4 Long term (current) use of insulin; Z79.899 Other long term (current) drug therapy; Z87.891 Personal history of nicotine dependence; Z87.442 Personal history of urinary calculi; Z88.5 Allergy status to narcotic agent; Z91.040 Latex allergy status; Z91.048 Other nonmedicinal substance allergy status; Z90.49 Acquired absence of other specified parts of digestive tract
CPT/HCPCS: 52356; 74420; 80053; 82360; 82962; 85025; 87635; 88300; 93005; C1769; C2617; J0690; J1100; J2250; J2405; J2704; J3010; J7030; Q9967

== ENCOUNTER → 2020-04-11 | Outpatient (CLI) | payer MEDICARE ==
[~2020-04-11] MED LIST changes: +MELATONIN PO; +SODIUM BICARB PO
== END | disposition home or self-care (01) ==
LOC: CFH 10:20
PROVIDERS: ATTEND Nurse Practitioner
DX: M85.88 Other specified disorders of bone density and structure, other site (principal); M85.89 Other specified disorders of bone density and structure, multiple sites
CPT/HCPCS: 77080